=== PATIENT | male | born 1950 | race Caucasian/White ===

== ENCOUNTER 2017-04-08 09:05 | Emergency (ER) | payer MEDICARE ==
[2017-04-08] MEDS ORDERED: NS 0.9% 1000 ML* 1,000 ML IV ONE (09:09)
[2017-04-08 09:26] LABS: Hematocrit 43 % (42-52); Hemoglobin 14.4 g/dl (14.0-18.0); Mean Corpuscular HGB Conc 34 g/dl (31-36); Mean Corpuscular Hemoglobin 32 pg (27-31); Mean Corpuscular Volume 94 fL (80-94); Mean Platelet Volume 8 um3 (7.4-10.4); Red Blood Count 4.51 10^6/ul (4.0-5.4); Red Cell Distribution Width 14 % (10.5-15); White Blood Count 5.4 10^3/ul (3.5-10.8)
--- NOTE | 2017-04-08 09:37 | RAD ---
Indication: Dizziness. Single frontal view of the chest performed at 0918 hours was reviewed. No prior is available. No mediastinal shift is noted. Heart is of normal size and configuration. Lung larios appear clear. IMPRESSION: NO ACTIVE CARDIOPULMONARY DISEASE IS NOTED.
[2017-04-08 09:42] LABS: Albumin 4.2 g/dL (3.2-5.2); BUN/Creatinine Ratio 15.7 (8-20); C Reactive Protein 4.7 mg/L (< 5.00); Calcium 9.4 mg/dL (8.6-10.3); EGFR African American 93.4 (>60); EGFR Non-African American 72.6 (>60); Globulin 2.7 g/dL (2-4); Magnesium 1.9 mg/dL (1.9-2.7); Potassium 4.5 mmol/L (3.5-5.0); Total Bilirubin 0.6 mg/dL (0.2-1.0); Total Protein 6.9 g/dL (6.4-8.9); Troponin I 0.01 ng/mL (<0.04)
[2017-04-08 10:10] LABS: TSH (Thyroid Stimulating Horm) 3.05 mcIU/mL (0.34-5.60)
[2017-04-08] MEDS ORDERED: Albuterol/Ipratropium NEB.SOL* Albuterol 2.5 MG/Ipratropium 0.5 MG 3 ML INH ONE (10:14)
[2017-04-08 13:08] VITALS: BP 132/72
[2017-04-08 13:21] LABS: Urine Bilirubin Negative (Negative); Urine Glucose Negative (Negative); Urine Nitrite Negative (Negative)
[2017-04-08 13:25] LABS: Urine Bacteria Absent (Absent)
--- NOTE | 2017-04-08 18:30 | ED ---
Richard German Angela, scribed for Hang Jones MD on 04/08/17 at 0913 . Dizziness - HPI Summary HPI Summary: This pt is a 66 y/o male BIBA presenting to [facility] c/o sudden onset of dizziness and weakness today. Pt reports he went outside with a coworker to smoke a cigarette, and as he was climbing the stairs pt began to hold on to the railings. Pt felt dizzy and weak, and had a glazed look to the ceiling (per coworker). Pt denies chest pain, nausea, vomiting. He states he was diaphoretic earlier, but now it has resolved. Pt endorses SOB, which is baseline as PMHx: COPD. Pt is on home O2 only at nights. - History Of Current Complaint Stated Complaint: DIZZY Hx Obtained From: Patient Onset/Duration: Suddenly Timing: Constant Character: Weak, Dizzy Associated Signs And Symptoms: Positive: Diaphoresis - now resolved, SOB - baseline from COPD, Other: - weakness and dizziness. Negative: Nausea, Vomiting , Chest Pain, Visual Changes, Fever, Chills, Slurred Speech - Allergies/Home Medications Allergies/Adverse Reactions: Allergies Allergy/AdvReac Type Severity Reaction Status Date / Time No Known Allergies Allergy Verified 04/08/17 09:13 PMH/Surg Hx/FS Hx/Imm Hx Endocrine/Hematology History: Denies: Hx Diabetes Cardiovascular History: Denies: Hx Hypertension Respiratory History: Reports: Hx Chronic Obstructive Pulmonary Disease (COPD) - Family History Known Family History: Negative: Respiratory Disease - Social History Alcohol Use: Daily - 4-5 drinks daily Hx Substance Use: No Substance Use Type: Reports: None Smoking Status (MU): Heavy Every Day Tobacco Smoker Review of Systems Positive: Skin Diaphoresis - now resolved. Negative: Fever, Chills Eyes: Negative Negative: Chest Pain Positive: Shortness Of Breath - baseline from COPD Negative: Vomiting, Nausea Musculoskeletal: Negative Skin: Negative Positive: Weakness - and dizziness All Other Systems Reviewed And Are Negative: Yes Physical Exam - Summary Physical Exam Summary: VITAL SIGNS: Reviewed. GENERAL: ~Patient is a well-developed and nourished male who is lying comfortable in the stretcher. ~Patient is not in any acute respiratory distress. HEAD AND FACE: No signs of trauma. ~No ecchymosis, hematomas or skull depressions. No sinus tenderness. EYES: PERRLA, EOMI x 2, No injected conjunctiva, no nystagmus. EARS: Hearing grossly intact. Ear canals and tympanic membranes are within normal limits. MOUTH: Oropharynx within normal limits. NECK: Supple, trachea is midline, no adenopathy, no JVD, no carotid bruit, no c- spine tenderness, neck with full ROM. CHEST: Symmetric, no tenderness at palpation LUNGS: Clear to auscultation bilaterally. No wheezing or crackles. CVS: Regular rate and rhythm, S1 and S2 present, no murmurs or gallops appreciated. ABDOMEN: Soft, non-tender. No signs of distention. No rebound no guarding, and no masses palpated. Bowel sounds are normal. EXTREMITIES: FROM in all major joints, no edema, no cyanosis or clubbing. NEURO: Alert and oriented x 3. No acute neurological deficits. Speech is normal and follows commands. SKIN: Dry and warm Triage Information Reviewed: Yes Vital Signs On Initial Exam: Initial Vitals Temp Pulse Resp BP Pulse Ox 99.3 F 96 17 123/80 95 04/08/17 09:13 04/08/17 09:13 04/08/17 09:13 04/08/17 09:13 04/08/17 09:13 Vital Signs Reviewed: Yes Diagnostics - Vital Signs Vital Signs Temp Pulse Resp BP Pulse Ox 04/08/17 13:08 98.9 F 64 20 132/72 04/08/17 11:59 66 19 98 04/08/17 11:30 72 19 135/74 97 04/08/17 11:00 79 20 132/74 97 04/08/17 10:30 68 17 130/69 99 04/08/17 10:25 72 17 98 04/08/17 10:00 72 19 134/69 97 04/08/17 09:30 83 19 118/70 96 04/08/17 09:13 99.3 F 96 17 123/80 95 04/08/17 09:11 22 04/08/17 09:10 123/80 - Laboratory Lab Results: Lab Results 04/08/17 04/08/17 04/08/17 Range/Units 09:00 09:00 09:00 WBC 5.4 (3.5-10.8) 10^3/ul RBC 4.51 (4.0-5.4) 10^6/ul Hgb 14.4 (14.0-18.0) g/dl Hct 43 (42-52) % MCV 94 (80-94) fL MCH 32 H (27-31) pg MCHC 34 (31-36) g/dl RDW 14 (10.5-15) % Plt Count 226 (150-450) 10^3/ul MPV 8 (7.4-10.4) um3 Neut % (Auto) 47.3 (38-83) % Lymph % (Auto) 36.2 (25-47) % [place] % (Auto) 11.1 H (1-9) % Eos % (Auto) 3.8 (0-6) % Baso % (Auto) 1.6 (0-2) % Absolute Neuts (auto) 2.6 (1.5-7.7) 10^3/ul Absolute Lymphs (auto) 2.0 (1.0-4.8) 10^3/ul Absolute Monos (auto) 0.6 (0-0.8) 10^3/ul Absolute Eos (auto) 0.2 (0-0.6) 10^3/ul Absolute Basos (auto) 0.1 (0-0.2) 10^3/ul Absolute Nucleated RBC 0 10^3/ul Nucleated RBC % 0 Sodium 133 (133-145) mmol/L Potassium 4.5 (3.5-5.0) mmol/L Chloride 99 L (101-111) mmol/L Carbon Dioxide 30 (22-32) mmol/L Anion Gap 4 (2-11) mmol/L BUN 16 (6-24) mg/dL Creatinine 1.02 (0.67-1.17) mg/dL Est GFR ( Amer) 93.4 (>60) Est GFR (Non-Af Amer) 72.6 (>60) BUN/Creatinine Ratio 15.7 (8-20) Glucose 112 H (70-100) mg/dL Calcium 9.4 (8.6-10.3) mg/dL Magnesium 1.9 (1.9-2.7) mg/dL Total Bilirubin 0.60 (0.2-1.0) mg/dL AST 23 (13-39) U/L ALT 17 (7-52) U/L Alkaline Phosphatase 57 (34-104) U/L Total Creatine Kinase 370 H (10-223) U/L Troponin I 0.01 (<0.04) ng/mL C-Reactive Protein 4.70 (< 5.00) mg/L B-Natriuretic Peptide 53 ( - 100) pg/mL Total Protein 6.9 (6.4-8.9) g/dL Albumin 4.2 (3.2-5.2) g/dL Globulin 2.7 (2-4) g/dL Albumin/Globulin Ratio 1.6 (1-3) TSH 3.05 (0.34-5.60) mcIU/mL Urine Color Urine Appearance Urine pH (5-9) Ur Specific [place] (1.010-1.030) Urine Protein (Negative) Urine Ketones (Negative) Urine Blood (Negative) Urine Nitrate (Negative) Urine Bilirubin (Negative) Urine Urobilinogen (Negative) Ur Leukocyte Esterase (Negative) Urine WBC (Auto) (Absent) Urine RBC (Auto) (Absent) Urine Bacteria (Absent) Urine Glucose (Negative) 04/08/17 Range/Units 12:30 WBC (3.5-10.8) 10^3/ul RBC (4.0-5.4) 10^6/ul Hgb (14.0-18.0) g/dl Hct (42-52) % MCV (80-94) fL MCH (27-31) pg MCHC (31-36) g/dl RDW (10.5-15) % Plt Count (150-450) 10^3/ul MPV (7.4-10.4) um3 Neut % (Auto) (38-83) % Lymph % (Auto) (25-47) % [place] % (Auto) (1-9) % Eos % (Auto) (0-6) % Baso % (Auto) (0-2) % Absolute Neuts (auto) (1.5-7.7) 10^3/ul Absolute Lymphs (auto) (1.0-4.8) 10^3/ul Absolute Monos (auto) (0-0.8) 10^3/ul Absolute Eos (auto) (0-0.6) 10^3/ul Absolute Basos (auto) (0-0.2) 10^3/ul Absolute Nucleated RBC 10^3/ul Nucleated RBC % Sodium (133-145) mmol/L Potassium (3.5-5.0) mmol/L Chloride (101-111) mmol/L Carbon Dioxide (22-32) mmol/L Anion Gap (2-11) mmol/L BUN (6-24) mg/dL Creatinine (0.67-1.17) mg/dL Est GFR ( Amer) (>60) Est GFR (Non-Af Amer) (>60) BUN/Creatinine Ratio (8-20) Glucose (70-100) mg/dL Calcium (8.6-10.3) mg/dL Magnesium (1.9-2.7) mg/dL Total Bilirubin (0.2-1.0) mg/dL AST (13-39) U/L ALT (7-52) U/L Alkaline Phosphatase (34-104) U/L Total Creatine Kinase (10-223) U/L Troponin I (<0.04) ng/mL C-Reactive Protein (< 5.00) mg/L B-Natriuretic Peptide ( - 100) pg/mL Total Protein (6.4-8.9) g/dL Albumin (3.2-5.2) g/dL Globulin (2-4) g/dL Albumin/Globulin Ratio (1-3) TSH (0.34-5.60) mcIU/mL Urine Color Straw Urine Appearance Clear Urine pH 6 (5-9) Ur Specific [place] 1.010 (1.010-1.030) Urine Protein Negative (Negative) Urine Ketones Negative (Negative) Urine Blood Negative (Negative) Urine Nitrate Negative (Negative) Urine Bilirubin Negative (Negative) Urine Urobilinogen Negative (Negative) Ur Leukocyte Esterase 2+ H (Negative) Urine WBC (Auto) 2+(11-20/hpf) H (Absent) Urine RBC (Auto) Absent (Absent) Urine Bacteria Absent (Absent) Urine Glucose Negative (Negative) Result Diagrams: 04/08/17 09:00 04/08/17 09:00 Lab Statement: Any lab studies that have been ordered have been reviewed, and results considered in the medical decision making process. - Radiology chest XR Xray Interpretation: No Acute Changes - IMPRESSION: No active cardiopulmonary disease is noted. ED physician has reviewed this radiology report and agrees. Radiology Interpretation Completed By: Radiologist - EKG 0906 Cardiac Rate: NL - 90 bpm EKG Rhythm: Sinus Rhythm ST Segment: Normal EKG Interpretation: Normal axis. No ST elevation. Dizzy Course/Dx - Course Assessment/Plan: This pt is a 66 y/o male BIBA presenting to [facility] c/o sudden onset of dizziness and weakness today. Pt reports he went outside with a coworker to smoke a cigarette, and as he was climbing the stairs pt began to hold on to the railings. Pt felt dizzy and weak, and had a glazed look to the ceiling (per coworker). Pt denies chest pain, nausea, vomiting. He states he was diaphoretic earlier, but now it has resolved. Pt endorses SOB, which is baseline as PMHx: COPD. Pt is on home O2 only at nights. Test results are without any abnormalities except of CPK of 370. UA shows 2 +leukocytes and 2+ white blood cells. Pt does not have any UTI symptoms. Therefore we wont treat with antibiotics at this time. The pt was hydrated and his symptoms resolved. On re-examination pt had lungs clear to auscultation bilaterally, and he didn not have any chest pain or other complaints. The pt was in the ED for a couple of hours and the symptoms did not return. Therefore, he will be discharged home with follow up from his PCP. He was recommended that if he develops dysuria, hematuria, urinary frequency, fever, or chills he will return to the ED. Pt is hemodynamically stable, alert and oriented x3. - Diagnoses Differential Diagnosis/HQI/PQRI: Anxiety, Dysrhythmia, Hyperventilation, Medication Reaction, Vasovagal Reaction, Other - Dehydration Provider Diagnoses: Dizziness Discharge - Discharge Plan Condition: Stable Disposition: HOME Patient Education Materials: Dizziness (ED) Referrals: [facility] PHYSICIAN REFERRAL [Outside] Additional Instructions: Please establish a primary care provider and follow up. The documentation as recorded by the Richard duarte Angela accurately reflects the service I personally performed and the decisions made by me, Hang Jones MD.
== END 2017-04-08 13:08 | disposition home or self-care (01) ==
LOC: ED 09:05
DX: R42 Dizziness and giddiness (principal); R53.1 Weakness; R06.02 Shortness of breath; F17.210 Nicotine dependence, cigarettes, uncomplicated
CPT/HCPCS: 36415; 71010; 80053; 81003; 81015; 82550; 83735; 83880; 84443; 84484; 85025; 86140; 86803; 87086; 93005; 94640; 99283; A9270-GY

== ENCOUNTER 2022-06-01 15:52 | Inpatient (IN) ==
[2022-06-01 17:01] LABS: High Sens Troponin Baseline 61 pg/mL (<20)
[2022-06-01 17:02] LABS: Hematocrit 27 % (42-52); Mean Corpuscular HGB Conc 33 g/dL (31-36); Mean Corpuscular Hemoglobin 29 pg (27-31); Mean Corpuscular Volume 90 fL (80-94); Platelet Count 340 10^3/uL (150-450); Red Blood Count 3.06 10^6 /uL (4.18-5.48); Red Cell Distribution Width 16 % (10-15); White Blood Count 20.8 10^3/uL (3.5-10.8)
[2022-06-01 17:47] LABS: ALT 48 U/L (7-52); Albumin 3.4 g/dL (3.2-5.2); Albumin/Globulin Ratio 1.5 (1-3); Alkaline Phosphatase 99 U/L (35-149); Blood Urea Nitrogen 19 mg/dL (6-24); CO2 Carbon Dioxide 28 mmol/L (22-32); Chloride 103 mmol/L (101-111); Globulin 2.3 g/dL (2-4); Glucose 125 mg/dL (70-100); Sodium 137 mmol/L (135-145); Total Protein 5.7 g/dL (6.4-8.9); eGFR CKD-EPI 81.4 (>60)
[2022-06-01 18:05] LABS: Anion Gap 6 mmol/L (2-11)
[2022-06-01 18:24] LABS: Potassium Redraw 3.6 mmol/L (3.5-5.0)
[2022-06-01 18:48] LABS: ABS Lymphocytes 0.6 10^3/ul (1.0-4.8)
[2022-06-01] MEDS ORDERED: metroNIDAZOLE IV 500 MG/100ML 500 MG/100 ML BAG IVPB ONE (19:49)
[2022-06-01] MEDS ORDERED: DOXYcycline 100 MG in NS 0.9% 250 ml 250 ML IVPB ONE (19:49)
[2022-06-01] MEDS ORDERED: Furosemide 20 mg/2 ml IV VIAL IV ONE (19:50)
[2022-06-01] MEDS ORDERED: Albuterol/Ipratropium NEB.SOL (2.5/0.5 MG) 3 ML NEB.SOLN INH ONE (19:50)
[2022-06-01] MEDS ORDERED: Enoxaparin 40 MG/0.4 ML SYR SUBCUT SCH (22:00)
[2022-06-02] MEDS: Albuterol HFA INHALER 8 gm MDI INH SCH ×4 (00:05→20:29)
[2022-06-02] MEDS ORDERED: Albuterol 2.5mg/3 ml (0.083%) NEB.SOLN INH ONE (03:58)
[2022-06-02] MEDS ORDERED: Albuterol 2.5mg/3 ml (0.083%) NEB.SOLN INH PRN (06:06)
[2022-06-02] MEDS: Mometasone/Formoter 200/5 MDI INH SCH ×2 (06:22→20:29)
[2022-06-02 06:26] LABS: ABS Basophils 0.1 10^3/ul (0-0.2); ABS Eosinophils 0.1 10^3/ul (0-0.6); ABS Lymphocytes 1.1 10^3/ul (1.0-4.8); ABS Monocytes 0.3 10^3/ul (0-0.8); ABS Neutrophils 19.4 10^3/ul (1.5-7.7); Eosinophil % 0.3 %; Hematocrit 28 % (42-52); Hemoglobin 8.9 g/dL (14.0-18.0); Lymphocyte % 5.2 %; Mean Corpuscular HGB Conc 32 g/dL (31-36); Mean Corpuscular Hemoglobin 29 pg (27-31); Mean Corpuscular Volume 90 fL (80-94); Mean Platelet Volume 7.5 fL (7.4-10.4); Platelet Count 285 10^3/uL (150-450); Red Blood Count 3.11 10^6 /uL (4.18-5.48); Red Cell Distribution Width 16 % (10-15)
[2022-06-02] MEDS: metroNIDAZOLE IV 500 MG/100ML 500 MG/100 ML BAG IVPB SCH ×2 (06:26→18:21)
[2022-06-02 06:29] LABS: INR 1.6 (0.89-1.11)
[2022-06-02 06:45] LABS: High Sensitivity Troponin 1 Hr 63 pg/mL (<20)
[2022-06-02 06:48] LABS: Calcium 9.2 mg/dL (8.6-10.3); Potassium 3.8 mmol/L (3.5-5.0); eGFR CKD-EPI 82.4 (>60)
[2022-06-02] MEDS: SPIRIVA Respimat (tiotropium) 2.5 mcg/inh Inhaler INH SCH (08:18)
[2022-06-02] MEDS ORDERED: Metoprolol Tartrate 5 mg VIAL 5 ml VIAL (1 mg/ml) IV ONE ×2 (09:58→10:39)
[2022-06-02] MEDS ORDERED: DOXYcycline 100 MG in NS 0.9% 250 ml 250 ML IVPB SCH (12:00)
[2022-06-02] MEDS ORDERED: Furosemide 40 mg/4 ml IV VIAL IV ONE (13:41)
[2022-06-03 05:31] LABS: ABS Lymphocytes 1.5 10^3/ul (1.0-4.8); ABS Monocytes 0.5 10^3/ul (0-0.8); Eosinophil % 0.2 %; Hematocrit 23 % (42-52); Hemoglobin 7.5 g/dL (14.0-18.0); Lymphocyte % 9.8 %; Mean Corpuscular HGB Conc 32 g/dL (31-36); Mean Corpuscular Hemoglobin 29 pg (27-31); Mean Corpuscular Volume 89 fL (80-94); Mean Platelet Volume 7.7 fL (7.4-10.4); Platelet Count 233 10^3/uL (150-450); Red Cell Distribution Width 16 % (10-15); White Blood Count 15.1 10^3/uL (3.5-10.8)
[2022-06-03] MEDS: Albuterol HFA INHALER 8 gm MDI INH SCH ×3 (05:54→20:06)
[2022-06-03 06:01] LABS: Calcium 8.6 mg/dL (8.6-10.3); Magnesium 1.7 mg/dL (1.9-2.7); Potassium 3.4 mmol/L (3.5-5.0); eGFR CKD-EPI 85.6 (>60)
[2022-06-03] MEDS ORDERED: Potassium Chlor 20 meq TAB.ER PO ONE (07:38)
[2022-06-03] MEDS: SPIRIVA Respimat (tiotropium) 2.5 mcg/inh Inhaler INH SCH (09:32)
[2022-06-03] MEDS ORDERED: Magnesium Sulfate 2 gm BAG 2 GM/50 ML BAG IVPB ONE (10:15)
[2022-06-03] MEDS: Mometasone/Formoter 200/5 MDI INH SCH ×2 (10:34→20:05)
[2022-06-04 07:12] LABS: ABS Eosinophils 0.1 10^3/ul (0-0.6); ABS Lymphocytes 1.2 10^3/ul (1.0-4.8); ABS Monocytes 0.4 10^3/ul (0-0.8); ABS Neutrophils 10.4 10^3/ul (1.5-7.7); Eosinophil % 0.6 %; Hematocrit 25 % (42-52); Hemoglobin 8.1 g/dL (14.0-18.0); Lymphocyte % 10.2 %; Mean Corpuscular HGB Conc 33 g/dL (31-36); Mean Corpuscular Hemoglobin 29 pg (27-31); Mean Corpuscular Volume 90 fL (80-94); Mean Platelet Volume 7.9 fL (7.4-10.4); Platelet Count 259 10^3/uL (150-450); Red Blood Count 2.78 10^6 /uL (4.18-5.48); Red Cell Distribution Width 16 % (10-15); White Blood Count 12.2 10^3/uL (3.5-10.8)
[2022-06-04 07:30] LABS: Calcium 8.7 mg/dL (8.6-10.3); Magnesium 1.9 mg/dL (1.9-2.7); Potassium 4.1 mmol/L (3.5-5.0); eGFR CKD-EPI 90.8 (>60)
[2022-06-04] MEDS: SPIRIVA Respimat (tiotropium) 2.5 mcg/inh Inhaler INH SCH (09:02)
[2022-06-04] MEDS: Mometasone/Formoter 200/5 MDI INH SCH ×2 (09:02→19:17)
[2022-06-04] MEDS: Albuterol HFA INHALER 8 gm MDI INH SCH ×2 (09:07→19:17)
[2022-06-05 07:01] LABS: ABS Eosinophils 0.1 10^3/ul (0-0.6); ABS Lymphocytes 1.2 10^3/ul (1.0-4.8); ABS Monocytes 0.4 10^3/ul (0-0.8); ABS Neutrophils 8.8 10^3/ul (1.5-7.7); Eosinophil % 0.6 %; Hematocrit 25 % (42-52); Hemoglobin 8.3 g/dL (14.0-18.0); Lymphocyte % 11.1 %; Mean Corpuscular HGB Conc 33 g/dL (31-36); Mean Corpuscular Hemoglobin 30 pg (27-31); Mean Corpuscular Volume 90 fL (80-94); Mean Platelet Volume 7.4 fL (7.4-10.4); Platelet Count 263 10^3/uL (150-450); Red Blood Count 2.77 10^6 /uL (4.18-5.48); Red Cell Distribution Width 16 % (10-15); White Blood Count 10.5 10^3/uL (3.5-10.8)
[2022-06-05] MEDS: SPIRIVA Respimat (tiotropium) 2.5 mcg/inh Inhaler INH SCH (07:02)
[2022-06-05] MEDS: Mometasone/Formoter 200/5 MDI INH SCH ×2 (07:02→19:04)
[2022-06-05] MEDS: Albuterol HFA INHALER 8 gm MDI INH SCH ×2 (07:06→19:04)
[2022-06-05 07:13] LABS: Calcium 8.7 mg/dL (8.6-10.3); Potassium 3.9 mmol/L (3.5-5.0); eGFR CKD-EPI 94.2 (>60)
[2022-06-06 07:19] LABS: ABS Eosinophils 0.1 10^3/ul (0-0.6); ABS Lymphocytes 1.3 10^3/ul (1.0-4.8); ABS Monocytes 0.6 10^3/ul (0-0.8); ABS Neutrophils 10.9 10^3/ul (1.5-7.7); Eosinophil % 0.5 %; Hematocrit 28 % (42-52); Hemoglobin 9.2 g/dL (14.0-18.0); Lymphocyte % 10.3 %; Mean Corpuscular HGB Conc 33 g/dL (31-36); Mean Corpuscular Hemoglobin 29 pg (27-31); Mean Corpuscular Volume 90 fL (80-94); Mean Platelet Volume 7.6 fL (7.4-10.4); Platelet Count 285 10^3/uL (150-450); Red Blood Count 3.14 10^6 /uL (4.18-5.48); Red Cell Distribution Width 17 % (10-15); White Blood Count 12.9 10^3/uL (3.5-10.8)
[2022-06-06 08:16] LABS: Calcium 9.2 mg/dL (8.6-10.3); Magnesium 1.6 mg/dL (1.9-2.7); Potassium 3.6 mmol/L (3.5-5.0); eGFR CKD-EPI 92.4 (>60)
[2022-06-06] MEDS: Mometasone/Formoter 200/5 MDI INH SCH ×2 (08:17→19:23)
[2022-06-06] MEDS: SPIRIVA Respimat (tiotropium) 2.5 mcg/inh Inhaler INH SCH (08:18)
[2022-06-06] MEDS: Albuterol HFA INHALER 8 gm MDI INH SCH ×2 (08:19→19:23)
[2022-06-06] MEDS ORDERED: Labetalol IV 5 MG/ML 20 ml VIAL IV PUSH ONE ×3 (08:31→23:07)
[2022-06-06] MEDS ORDERED: Lactated Ringers 1000 ml BAG 1,000 ML IV ONE ×2 (09:20→15:22)
[2022-06-06] MEDS ORDERED: Piperacillin/Tazobac ADVAN 3.375 GM in NS 0.9% 100 ml BAG 100 ML IV ONE (09:21)
[2022-06-06] MEDS ORDERED: Zosyn per Pharmacy NOTE FOLLOW UP SCH (10:00)
[2022-06-06 10:04] LABS: C Reactive Protein 40.34 mg/L (<8.01)
[2022-06-06] MEDS ORDERED: Magnesium Sulf 4 GM/100 ML IV 4,000 MG/100 ML BAG IVPB ONE (12:26)
[2022-06-06] MEDS: ZOSYN 3.375 GM Q8H per EXTENDED INFUSION IV SCH (17:14)
[2022-06-06 18:06] LABS: Urine Appearance Clear; Urine Bilirubin Negative (Negative); Urine Blood Negative (Negative); Urine Color Straw; Urine Glucose Negative (Negative); Urine Ketones Negative (Negative); Urine Nitrite Negative (Negative); Urine Protein Negative (Negative); Urine Specific Gravity 1.008 (1.002-1.030); Urine Urobilinogen Negative (Negative)
[2022-06-06 18:10] LABS: Urine Bacteria 1+ (Absent); Urine Red Blood Cell Trace(0-2/hpf) (Absent); Urine Squamous Epithelial Cell Present (Absent); Urine White Blood Cell Trace(0-5/hpf) (Absent)
[2022-06-06] MEDS ORDERED: Furosemide 40 mg/4 ml IV VIAL IV ONE (23:07)
[2022-06-06] MEDS ORDERED: nitroGLYCERIN DRIP 25,000 MCG/250 ML BTL IV SCH (23:45)
[2022-06-06 23:53] LABS: PCO2 Arterial 69 mmHg (35-45); PO2 Arterial 61 mmHg (80-100)
[2022-06-07] MEDS: ZOSYN 3.375 GM Q8H per EXTENDED INFUSION IV SCH ×3 (02:15→16:24)
[2022-06-07 06:18] LABS: ABS Basophils 0.1 10^3/ul (0-0.2); ABS Lymphocytes 1.4 10^3/ul (1.0-4.8); ABS Neutrophils 16.8 10^3/ul (1.5-7.7); Eosinophil % 0.1 %; Hematocrit 24 % (42-52); Hemoglobin 7.8 g/dL (14.0-18.0); Lymphocyte % 7.1 %; Mean Corpuscular HGB Conc 32 g/dL (31-36); Mean Corpuscular Hemoglobin 29 pg (27-31); Mean Corpuscular Volume 90 fL (80-94); Mean Platelet Volume 7.1 fL (7.4-10.4); Platelet Count 253 10^3/uL (150-450); Red Cell Distribution Width 17 % (10-15); White Blood Count 19.3 10^3/uL (3.5-10.8)
[2022-06-07 07:02] LABS: Albumin 2.7 g/dL (3.2-5.2); Albumin/Globulin Ratio 1.9 (1-3); Calcium 8.3 mg/dL (8.6-10.3); Globulin 1.4 g/dL (2-4); Magnesium 1.8 mg/dL (1.9-2.7); Potassium 3.6 mmol/L (3.5-5.0); Total Bilirubin 0.6 mg/dL (0.2-1.0); Total Protein 4.1 g/dL (6.4-8.9); eGFR CKD-EPI 76.7 (>60)
[2022-06-07] MEDS: SPIRIVA Respimat (tiotropium) 2.5 mcg/inh Inhaler INH SCH (08:29)
[2022-06-07] MEDS: Albuterol HFA INHALER 8 gm MDI INH SCH ×2 (08:29→19:16)
[2022-06-07] MEDS: Mometasone/Formoter 200/5 MDI INH SCH (08:30)
[2022-06-07] MEDS ORDERED: Magnesium Sulfate IV 1GM/100ML 1 GM/100 ML BAG IV ONE (10:41)
[2022-06-07] MEDS ORDERED: Potassium Chlor 20 meq TAB.ER PO ONE (10:43)
[2022-06-07 10:50] LABS: PCO2 Arterial 45 mmHg (35-45); PO2 Arterial 110 mmHg (80-100)
[2022-06-07] MEDS: Albuterol/Ipratropium NEB.SOL (2.5/0.5 MG) 3 ML NEB.SOLN INH PRN (13:20)
[2022-06-08] MEDS: ZOSYN 3.375 GM Q8H per EXTENDED INFUSION IV SCH ×3 (00:35→17:04)
[2022-06-08 05:15] LABS: ABS Lymphocytes 1.1 10^3/ul (1.0-4.8); ABS Monocytes 0.4 10^3/ul (0-0.8); ABS Neutrophils 12.5 10^3/ul (1.5-7.7); Hematocrit 23 % (42-52); Hemoglobin 7.5 g/dL (14.0-18.0); Lymphocyte % 7.8 %; Mean Corpuscular HGB Conc 32 g/dL (31-36); Mean Corpuscular Hemoglobin 29 pg (27-31); Mean Corpuscular Volume 89 fL (80-94); Mean Platelet Volume 7.7 fL (7.4-10.4); Platelet Count 261 10^3/uL (150-450); Red Cell Distribution Width 17 % (10-15)
[2022-06-08 06:07] LABS: Calcium 8.3 mg/dL (8.6-10.3); Potassium 4.4 mmol/L (3.5-5.0); eGFR CKD-EPI 95.7 (>60)
[2022-06-08] MEDS: Albuterol HFA INHALER 8 gm MDI INH SCH ×2 (07:02→19:07)
[2022-06-08] MEDS ORDERED: Furosemide 40 mg/4 ml IV VIAL IV ONE (10:27)
[2022-06-08] MEDS: Albuterol/Ipratropium NEB.SOL (2.5/0.5 MG) 3 ML NEB.SOLN INH PRN ×2 (12:33→19:44)
[2022-06-09] MEDS: ZOSYN 3.375 GM Q8H per EXTENDED INFUSION IV SCH ×2 (00:48→08:21)
[2022-06-09] MEDS ORDERED: Albuterol HFA INHALER 8 gm MDI INH SCH (07:00)
[2022-06-09 08:59] LABS: ABS Eosinophils 0.1 10^3/ul (0-0.6); ABS Lymphocytes 1.7 10^3/ul (1.0-4.8); ABS Monocytes 0.5 10^3/ul (0-0.8); ABS Neutrophils 8.7 10^3/ul (1.5-7.7); Eosinophil % 0.6 %; Hematocrit 25 % (42-52); Hemoglobin 8.1 g/dL (14.0-18.0); Lymphocyte % 15.2 %; Mean Corpuscular HGB Conc 33 g/dL (31-36); Mean Corpuscular Hemoglobin 29 pg (27-31); Mean Corpuscular Volume 90 fL (80-94); Mean Platelet Volume 7.8 fL (7.4-10.4); Platelet Count 309 10^3/uL (150-450); Red Blood Count 2.75 10^6 /uL (4.18-5.48); Red Cell Distribution Width 17 % (10-15)
[2022-06-09 09:52] LABS: Calcium 8.9 mg/dL (8.6-10.3); Magnesium 1.9 mg/dL (1.9-2.7); eGFR CKD-EPI 85.6 (>60)
[2022-06-09 12:57] VITALS: BP 137/82
== END 2022-06-09 17:00 | disposition home health service (06) | DRG 947 ==
LOC: EDHOLD 15:52 → ED 15:52 → SUATTDRO 21:10 → ICU 06-02 16:48 → SSU 06-03 16:28 → SUATTDRO 06-04 07:04 → MED 06-05 22:31 → ICU 06-06 23:59
PROVIDERS: ADMIT Internal Medicine; ATTEND Internal Medicine

== ENCOUNTER 2022-06-13 10:07 | Inpatient (IN) ==
[2022-06-13 11:14] LABS: ABS Eosinophils 0.1 10^3/ul (0-0.6); ABS Lymphocytes 1.2 10^3/ul (1.0-4.8); ABS Neutrophils 19.1 10^3/ul (1.5-7.7); Eosinophil % 0.3 %; Hematocrit 27 % (42-52); Hemoglobin 8.5 g/dL (14.0-18.0); Lymphocyte % 5.5 %; Mean Corpuscular HGB Conc 31 g/dL (31-36); Mean Corpuscular Hemoglobin 29 pg (27-31); Mean Corpuscular Volume 93 fL (80-94); Mean Platelet Volume 7.5 fL (7.4-10.4); Platelet Count 340 10^3/uL (150-450); Red Blood Count 2.95 10^6 /uL (4.18-5.48); Red Cell Distribution Width 17 % (10-15); White Blood Count 21.4 10^3/uL (3.5-10.8)
[2022-06-13] MEDS ORDERED: Vancomycin 1,000 MG in NS 0.9% 250 ml 250 ML IVPB ONE ×2 (11:18→14:42)
[2022-06-13] MEDS ORDERED: Piperacillin/Tazobac ADVAN 3.375 GM in NS 0.9% 100 ml BAG 100 ML IV ONE ×2 (11:18→14:42)
[2022-06-13 11:48] LABS: Albumin/Globulin Ratio 1.4 (1-3); C Reactive Protein 251.24 mg/L (<8.01); Calcium 9.2 mg/dL (8.6-10.3); Globulin 2.1 g/dL (2-4); Potassium 4.1 mmol/L (3.5-5.0); Total Bilirubin 0.8 mg/dL (0.2-1.0); Total Protein 5.1 g/dL (6.4-8.9); eGFR CKD-EPI 84.5 (>60)
[2022-06-13 12:34] LABS: INR 1.7 (0.89-1.11)
[2022-06-13 12:35] LABS: Activated Partial Thrombo Time 23.7 seconds (26.0-38.0)
[2022-06-13 13:15] LABS: High Sensitivity Troponin 1 Hr 83 pg/mL (<20)
[2022-06-13 13:26] LABS: Urine Appearance Cloudy; Urine Bilirubin Negative (Negative); Urine Blood 1+ (Negative); Urine Color Yellow; Urine Glucose Negative (Negative); Urine Ketones Negative (Negative); Urine Nitrite Negative (Negative); Urine Protein 2+(100 mg/dL) (Negative); Urine Specific Gravity 1.017 (1.002-1.030); Urine Urobilinogen Negative (Negative)
[2022-06-13 14:11] LABS: Urine Bacteria Absent (Absent); Urine Red Blood Cell 1+(3-5/hpf) (Absent); Urine Squamous Epithelial Cell Present (Absent); Urine White Blood Cell 1+(6-10/hpf) (Absent)
[2022-06-13] MEDS ORDERED: Albuterol 2.5mg/3 ml (0.083%) NEB.SOLN INH PRN (14:42)
[2022-06-13] MEDS ORDERED: Furosemide 40 mg/4 ml IV VIAL IV SLOW PU ONE (14:42)
[2022-06-13] MEDS ORDERED: Albuterol/Ipratropium NEB.SOL (2.5/0.5 MG) 3 ML NEB.SOLN ONE (14:56)
[2022-06-13] MEDS ORDERED: Vancomycin per Pharmacy 1 EA NOTE FOLLOW UP SCH (15:00)
[2022-06-13] MEDS ORDERED: Zosyn per Pharmacy NOTE FOLLOW UP SCH (15:00)
[2022-06-13] MEDS: Albuterol/Ipratropium NEB.SOL (2.5/0.5 MG) 3 ML NEB.SOLN INH SCH ×3 (15:02→22:55)
[2022-06-13] MEDS ORDERED: Azithromycin 500 mg/250 mL NS IVPB ONE (16:00)
[2022-06-13] MEDS: methylPREDNISolone SOD SUCC 40 mg/ml 1 ml VIAL IV SCH (16:24)
[2022-06-13] MEDS: Azithromycin 500 mg/250 ml NS 500 MG/250 ML BAG IVPB SCH (17:57)
[2022-06-13] MEDS: ZOSYN 3.375 GM Q8H per EXTENDED INFUSION IV SCH (17:57)
[2022-06-13] MEDS: Mometasone/Formoter 200/5 MDI INH SCH (18:55)
[2022-06-14] MEDS: Vancomycin 1000 MG in NS 0.9% 250 ML IVPB SCH ×2 (00:31→12:44)
[2022-06-14] MEDS: ZOSYN 3.375 GM Q8H per EXTENDED INFUSION IV SCH ×3 (00:32→16:03)
[2022-06-14] MEDS: methylPREDNISolone SOD SUCC 40 mg/ml 1 ml VIAL IV SCH ×3 (00:32→16:01)
[2022-06-14] MEDS: Albuterol/Ipratropium NEB.SOL (2.5/0.5 MG) 3 ML NEB.SOLN INH SCH ×2 (03:05→06:36)
[2022-06-14 05:09] LABS: ABS Basophils 0.1 10^3/ul (0-0.2); ABS Lymphocytes 0.5 10^3/ul (1.0-4.8); ABS Monocytes 0.2 10^3/ul (0-0.8); Hematocrit 23 % (42-52); Hemoglobin 7.5 g/dL (14.0-18.0); Lymphocyte % 3.1 %; Mean Corpuscular HGB Conc 33 g/dL (31-36); Mean Corpuscular Hemoglobin 30 pg (27-31); Mean Corpuscular Volume 91 fL (80-94); Mean Platelet Volume 7.7 fL (7.4-10.4); Platelet Count 293 10^3/uL (150-450); Red Blood Count 2.51 10^6 /uL (4.18-5.48); Red Cell Distribution Width 17 % (10-15); White Blood Count 16.7 10^3/uL (3.5-10.8)
[2022-06-14 05:15] LABS: INR 2.47 (0.89-1.11)
[2022-06-14 05:48] LABS: Calcium 8.5 mg/dL (8.6-10.3); Magnesium 1.8 mg/dL (1.9-2.7); Phosphorus 4.1 mg/dL (2.5-5.0); eGFR CKD-EPI 76.7 (>60)
[2022-06-14] MEDS ORDERED: Albuterol/Ipratropium NEB.SOL (2.5/0.5 MG) 3 ML NEB.SOLN INH PRN (06:44)
[2022-06-14] MEDS: Mometasone/Formoter 200/5 MDI INH SCH ×2 (06:50→19:35)
[2022-06-14] MEDS ORDERED: Albuterol HFA INHALER 8 gm MDI INH SCH (07:00)
[2022-06-14] MEDS ORDERED: Magnesium Sulfate 2 gm BAG 2 GM/50 ML BAG IVPB ONE (07:14)
[2022-06-14] MEDS: SPIRIVA Respimat (tiotropium) 2.5 mcg/inh Inhaler INH SCH (10:08)
[2022-06-14] MEDS: Azithromycin 500 mg/250 ml NS 500 MG/250 ML BAG IVPB SCH (17:10)
[2022-06-15] MEDS: ZOSYN 3.375 GM Q8H per EXTENDED INFUSION IV SCH ×3 (00:37→17:43)
[2022-06-15] MEDS: methylPREDNISolone SOD SUCC 40 mg/ml 1 ml VIAL IV SCH ×3 (00:41→17:47)
[2022-06-15] MEDS: Vancomycin 1000 MG in NS 0.9% 250 ML IVPB SCH ×2 (00:42→13:30)
[2022-06-15 06:47] LABS: Calcium 9.1 mg/dL (8.6-10.3); Magnesium 2.1 mg/dL (1.9-2.7); Potassium 4.2 mmol/L (3.5-5.0); eGFR CKD-EPI 72.8 (>60)
[2022-06-15 07:08] LABS: ABS Lymphocytes 0.4 10^3/ul (1.0-4.8); ABS Monocytes 0.3 10^3/ul (0-0.8); ABS Neutrophils 14.4 10^3/ul (1.5-7.7); Hematocrit 23 % (42-52); Hemoglobin 7.6 g/dL (14.0-18.0); Lymphocyte % 2.8 %; Mean Corpuscular HGB Conc 33 g/dL (31-36); Mean Corpuscular Hemoglobin 29 pg (27-31); Mean Corpuscular Volume 90 fL (80-94); Mean Platelet Volume 8.3 fL (7.4-10.4); Nucleated Red Blood Cells % 0.1; Platelet Count 295 10^3/uL (150-450); Red Blood Count 2.57 10^6 /uL (4.18-5.48); Red Cell Distribution Width 16 % (10-15); White Blood Count 15.2 10^3/uL (3.5-10.8)
[2022-06-15] MEDS: Mometasone/Formoter 200/5 MDI INH SCH ×2 (07:21→20:57)
[2022-06-15] MEDS: SPIRIVA Respimat (tiotropium) 2.5 mcg/inh Inhaler INH SCH (07:24)
[2022-06-15] MEDS ORDERED: SPIRIVA Respimat (tiotropium) 2.5 mcg/inh Inhaler INH SCH (09:00)
[2022-06-15] MEDS ORDERED: Vancomycin Trough Check NOTE FOLLOW UP ONE (11:30)
[2022-06-15] MEDS ORDERED: Dextrose 50% Syringe 50 ml 25 GM/50 ML SYRINGE IV PUSH PRN (15:51)
[2022-06-15] MEDS ORDERED: Furosemide 20 mg/2 ml IV VIAL IV ONE (17:40)
[2022-06-15] MEDS: Azithromycin 500 mg/250 ml NS 500 MG/250 ML BAG IVPB SCH (17:47)
[2022-06-16] MEDS: Vancomycin 1000 MG in NS 0.9% 250 ML IVPB SCH (00:44)
[2022-06-16] MEDS: ZOSYN 3.375 GM Q8H per EXTENDED INFUSION IV SCH ×3 (00:54→16:30)
[2022-06-16 06:14] LABS: ABS Lymphocytes 0.5 10^3/ul (1.0-4.8); ABS Monocytes 0.2 10^3/ul (0-0.8); ABS Neutrophils 11.3 10^3/ul (1.5-7.7); Hematocrit 23 % (42-52); Hemoglobin 7.5 g/dL (14.0-18.0); Lymphocyte % 3.9 %; Mean Corpuscular HGB Conc 33 g/dL (31-36); Mean Corpuscular Hemoglobin 29 pg (27-31); Mean Corpuscular Volume 89 fL (80-94); Mean Platelet Volume 8.2 fL (7.4-10.4); Platelet Count 279 10^3/uL (150-450); Red Blood Count 2.58 10^6 /uL (4.18-5.48); Red Cell Distribution Width 16 % (10-15)
[2022-06-16] MEDS: Mometasone/Formoter 200/5 MDI INH SCH ×2 (07:26→19:39)
[2022-06-16] MEDS: SPIRIVA Respimat (tiotropium) 2.5 mcg/inh Inhaler INH SCH (07:28)
[2022-06-16 08:16] LABS: Calcium 9.3 mg/dL (8.6-10.3); Potassium 4.3 mmol/L (3.5-5.0)
[2022-06-16 08:21] LABS: eGFR CKD-EPI 77.1 (>60)
[2022-06-16] MEDS ORDERED: methylPREDNISolone SOD SUCC 40 mg/ml 1 ml VIAL IV SCH (09:00)
[2022-06-16 14:26] LABS: Ferritin 699.4 ng/mL (24-336)
[2022-06-16] MEDS: Azithromycin 500 mg/250 ml NS 500 MG/250 ML BAG IVPB SCH (17:11)
[2022-06-17] MEDS: ZOSYN 3.375 GM Q8H per EXTENDED INFUSION IV SCH ×3 (01:01→16:01)
[2022-06-17 07:03] LABS: ABS Lymphocytes 0.5 10^3/ul (1.0-4.8); ABS Monocytes 0.3 10^3/ul (0-0.8); ABS Neutrophils 12.2 10^3/ul (1.5-7.7); Hematocrit 25 % (42-52); Hemoglobin 8.2 g/dL (14.0-18.0); Lymphocyte % 3.6 %; Mean Corpuscular HGB Conc 32 g/dL (31-36); Mean Corpuscular Hemoglobin 29 pg (27-31); Mean Corpuscular Volume 90 fL (80-94); Mean Platelet Volume 8.6 fL (7.4-10.4); Platelet Count 305 10^3/uL (150-450); Red Blood Count 2.83 10^6 /uL (4.18-5.48); Red Cell Distribution Width 16 % (10-15)
[2022-06-17 07:20] LABS: Phosphorus 3.6 mg/dL (2.5-5.0); Potassium 4.2 mmol/L (3.5-5.0); eGFR CKD-EPI 82.9 (>60)
[2022-06-17] MEDS: Mometasone/Formoter 200/5 MDI INH SCH ×2 (08:13→19:36)
[2022-06-17] MEDS: SPIRIVA Respimat (tiotropium) 2.5 mcg/inh Inhaler INH SCH (08:14)
[2022-06-17] MEDS: Insulin GLARGINE 100 un/ml 10 ml VIAL SUBCUT SCH (12:53)
[2022-06-18] MEDS: ZOSYN 3.375 GM Q8H per EXTENDED INFUSION IV SCH ×5 (00:05→23:23)
[2022-06-18] MEDS: Benzocaine/Menthol LOZ MT PRN (00:08)
[2022-06-18 06:40] LABS: ABS Lymphocytes 0.6 10^3/ul (1.0-4.8); ABS Monocytes 0.8 10^3/ul (0-0.8); ABS Neutrophils 16.4 10^3/ul (1.5-7.7); Hematocrit 27 % (42-52); Hemoglobin 8.7 g/dL (14.0-18.0); Lymphocyte % 3.2 %; Mean Corpuscular HGB Conc 32 g/dL (31-36); Mean Corpuscular Hemoglobin 29 pg (27-31); Mean Corpuscular Volume 90 fL (80-94); Mean Platelet Volume 8.1 fL (7.4-10.4); Nucleated Red Blood Cells % 0.1; Platelet Count 311 10^3/uL (150-450); Red Cell Distribution Width 17 % (10-15); White Blood Count 17.8 10^3/uL (3.5-10.8)
[2022-06-18 07:07] LABS: Albumin/Globulin Ratio 1.7 (1-3); Calcium 10.1 mg/dL (8.6-10.3); Globulin 1.8 g/dL (2-4); Magnesium 1.9 mg/dL (1.9-2.7); Potassium 3.8 mmol/L (3.5-5.0); Total Bilirubin 0.5 mg/dL (0.2-1.0); Total Protein 4.8 g/dL (6.4-8.9); eGFR CKD-EPI 91.8 (>60)
[2022-06-18] MEDS: Mometasone/Formoter 200/5 MDI INH SCH ×2 (07:25→20:24)
[2022-06-18] MEDS: SPIRIVA Respimat (tiotropium) 2.5 mcg/inh Inhaler INH SCH (07:27)
[2022-06-18] MEDS ORDERED: Digoxin IV 0.5 MG/2 ML AMP (0.25 MG/ML) IV SLOW PU ONE (09:12)
[2022-06-18] MEDS ORDERED: Furosemide 40 mg/4 ml IV VIAL IV SLOW PU ONE (09:50)
[2022-06-18] MEDS: Acetaminophen IV 1 GM/100ML 1,000 MG/100 ML BAG IV PRN (09:56)
[2022-06-18] MEDS: Linezolid 600 MG IVPREMIX(*) 600 MG/300 ML BAG IVPB SCH (10:29)
[2022-06-18] MEDS ORDERED: Diltiazem Infusion @ 5 MG/HR - (MEDTELE ONLY, no titration) IV SCH (10:30)
[2022-06-18] MEDS: Insulin GLARGINE 100 un/ml 10 ml VIAL SUBCUT SCH (11:27)
[2022-06-18] MEDS ORDERED: Vancomycin Trough Check NOTE FOLLOW UP ONE (11:30)
[2022-06-18] MEDS: DOXYcycline 100 MG in NS 0.9% 250 ml 250 ML IVPB SCH ×2 (11:52→20:45)
[2022-06-18 16:00] LABS: Urine Appearance Clear; Urine Bilirubin Negative (Negative); Urine Blood Negative (Negative); Urine Color Colorless; Urine Glucose 2+(150 mg/dL) (Negative); Urine Ketones Negative (Negative); Urine Nitrite Negative (Negative); Urine Protein Negative (Negative); Urine Specific Gravity 1.006 (1.002-1.030); Urine Urobilinogen Negative (Negative)
[2022-06-18] MEDS ORDERED: Furosemide 20 mg/2 ml IV VIAL IV SLOW PU ONE (17:41)
[2022-06-19] MEDS: Linezolid 600 MG IVPREMIX(*) 600 MG/300 ML BAG IVPB SCH ×3 (00:38→23:16)
[2022-06-19] MEDS: ZOSYN 3.375 GM Q8H per EXTENDED INFUSION IV SCH ×3 (05:20→20:50)
[2022-06-19 06:11] LABS: ABS Basophils 0.1 10^3/ul (0-0.2); ABS Lymphocytes 0.6 10^3/ul (1.0-4.8); ABS Monocytes 0.9 10^3/ul (0-0.8); ABS Neutrophils 19.3 10^3/ul (1.5-7.7); Hematocrit 27 % (42-52); Hemoglobin 8.7 g/dL (14.0-18.0); Lymphocyte % 3.1 %; Mean Corpuscular HGB Conc 32 g/dL (31-36); Mean Corpuscular Hemoglobin 29 pg (27-31); Mean Corpuscular Volume 90 fL (80-94); Mean Platelet Volume 7.9 fL (7.4-10.4); Platelet Count 271 10^3/uL (150-450); Red Blood Count 2.97 10^6 /uL (4.18-5.48); Red Cell Distribution Width 17 % (10-15); White Blood Count 20.9 10^3/uL (3.5-10.8)
[2022-06-19 06:51] LABS: Albumin 2.7 g/dL (3.2-5.2); Albumin/Globulin Ratio 1.6 (1-3); C Reactive Protein 105.24 mg/L (<8.01); Calcium 9.1 mg/dL (8.6-10.3); Globulin 1.7 g/dL (2-4); Magnesium 1.7 mg/dL (1.9-2.7); Potassium 3.3 mmol/L (3.5-5.0); Total Bilirubin 0.5 mg/dL (0.2-1.0); Total Protein 4.4 g/dL (6.4-8.9); eGFR CKD-EPI 81.9 (>60)
[2022-06-19] MEDS ORDERED: Magnesium Sulfate 2 gm BAG 2 GM/50 ML BAG IVPB ONE (07:36)
[2022-06-19] MEDS ORDERED: Potassium Chloride LIQUID 20 MEQ/15 ML LIQUID PO ONE (07:36)
[2022-06-19] MEDS: SPIRIVA Respimat (tiotropium) 2.5 mcg/inh Inhaler INH SCH (07:48)
[2022-06-19] MEDS: Mometasone/Formoter 200/5 MDI INH SCH ×2 (07:48→19:45)
[2022-06-19] MEDS: Insulin GLARGINE 100 un/ml 10 ml VIAL SUBCUT SCH (08:09)
[2022-06-19] MEDS: DOXYcycline 100 MG in NS 0.9% 250 ml 250 ML IVPB SCH (10:00)
[2022-06-19] MEDS ORDERED: Furosemide 20 mg/2 ml IV VIAL IV SLOW PU ONE (13:23)
[2022-06-20] MEDS: ZOSYN 3.375 GM Q8H per EXTENDED INFUSION IV SCH (05:42)
[2022-06-20 06:19] LABS: ABS Basophils 0.1 10^3/ul (0-0.2); ABS Lymphocytes 0.9 10^3/ul (1.0-4.8); ABS Monocytes 0.6 10^3/ul (0-0.8); ABS Neutrophils 16.8 10^3/ul (1.5-7.7); Eosinophil % 0.2 %; Hematocrit 27 % (42-52); Hemoglobin 8.3 g/dL (14.0-18.0); Lymphocyte % 4.9 %; Mean Corpuscular HGB Conc 31 g/dL (31-36); Mean Corpuscular Hemoglobin 28 pg (27-31); Mean Corpuscular Volume 91 fL (80-94); Mean Platelet Volume 8.1 fL (7.4-10.4); Platelet Count 252 10^3/uL (150-450); Red Blood Count 2.93 10^6 /uL (4.18-5.48); Red Cell Distribution Width 17 % (10-15); White Blood Count 18.3 10^3/uL (3.5-10.8)
[2022-06-20 07:10] LABS: Calcium 8.7 mg/dL (8.6-10.3); Potassium 3.7 mmol/L (3.5-5.0)
[2022-06-20 07:16] LABS: eGFR CKD-EPI 86.2 (>60)
[2022-06-20] MEDS: Mometasone/Formoter 200/5 MDI INH SCH ×2 (07:25→19:52)
[2022-06-20] MEDS: SPIRIVA Respimat (tiotropium) 2.5 mcg/inh Inhaler INH SCH (07:26)
[2022-06-20] MEDS: Insulin GLARGINE 100 un/ml 10 ml VIAL SUBCUT SCH (08:55)
[2022-06-20] MEDS: Nystatin TOP POWDER 15 GM BTL TOPICAL SCH ×2 (12:45→21:19)
[2022-06-20] MEDS: Amoxicillin/Clavul 875/125 TAB (Augmentin 875 tab) PO SCH ×2 (12:46→21:18)
[2022-06-21 07:53] LABS: ABS Lymphocytes 1.1 10^3/ul (1.0-4.8); ABS Monocytes 0.5 10^3/ul (0-0.8); ABS Neutrophils 15.3 10^3/ul (1.5-7.7); Eosinophil % 0.2 %; Hematocrit 27 % (42-52); Hemoglobin 8.6 g/dL (14.0-18.0); Lymphocyte % 6.5 %; Mean Corpuscular HGB Conc 32 g/dL (31-36); Mean Corpuscular Hemoglobin 29 pg (27-31); Mean Corpuscular Volume 91 fL (80-94); Mean Platelet Volume 8.2 fL (7.4-10.4); Platelet Count 261 10^3/uL (150-450); Red Blood Count 2.95 10^6 /uL (4.18-5.48); Red Cell Distribution Width 17 % (10-15)
[2022-06-21] MEDS: Mometasone/Formoter 200/5 MDI INH SCH ×2 (08:00→19:51)
[2022-06-21] MEDS: SPIRIVA Respimat (tiotropium) 2.5 mcg/inh Inhaler INH SCH (08:02)
[2022-06-21 08:21] LABS: Calcium 9.2 mg/dL (8.6-10.3); Magnesium 1.9 mg/dL (1.9-2.7); Potassium 3.7 mmol/L (3.5-5.0); eGFR CKD-EPI 92.2 (>60)
[2022-06-21] MEDS: Insulin GLARGINE 100 un/ml 10 ml VIAL SUBCUT SCH (09:18)
[2022-06-21] MEDS: Amoxicillin/Clavul 875/125 TAB (Augmentin 875 tab) PO SCH ×2 (09:23→21:21)
[2022-06-21] MEDS: Nystatin TOP POWDER 15 GM BTL TOPICAL SCH ×2 (09:23→21:31)
[2022-06-21] MEDS: Benzocaine/Menthol LOZ MT PRN (21:20)
[2022-06-22] MEDS: Mometasone/Formoter 200/5 MDI INH SCH ×2 (07:51→18:35)
[2022-06-22] MEDS: SPIRIVA Respimat (tiotropium) 2.5 mcg/inh Inhaler INH SCH (07:55)
[2022-06-22 09:54] LABS: Hematocrit 34 % (42-52); Hemoglobin 10.5 g/dL (14.0-18.0); Mean Corpuscular HGB Conc 31 g/dL (31-36); Mean Corpuscular Hemoglobin 28 pg (27-31); Mean Corpuscular Volume 91 fL (80-94); Mean Platelet Volume 7.7 fL (7.4-10.4); Platelet Count 328 10^3/uL (150-450); Red Blood Count 3.72 10^6 /uL (4.18-5.48); Red Cell Distribution Width 17 % (10-15); White Blood Count 34.1 10^3/uL (3.5-10.8)
[2022-06-22] MEDS ORDERED: Furosemide 40 mg/4 ml IV VIAL IV ONE (10:00)
[2022-06-22] MEDS ORDERED: KCL 20 MEQ/100 ML IVPREMIX 20 MEQ/100 ML BAG IV ONE (10:03)
[2022-06-22 10:18] LABS: PCO2 Arterial 41 mmHg (35-45); PO2 Arterial 171 mmHg (80-100)
[2022-06-22 10:23] LABS: Calcium 9.6 mg/dL (8.6-10.3); Potassium 4.1 mmol/L (3.5-5.0); eGFR CKD-EPI 85.1 (>60)
[2022-06-22] MEDS: Amoxicillin/Clavul 875/125 TAB (Augmentin 875 tab) PO SCH ×2 (12:01→21:11)
[2022-06-22] MEDS: Nystatin TOP POWDER 15 GM BTL TOPICAL SCH ×2 (12:21→21:36)
[2022-06-22 13:12] LABS: Urine Appearance Clear; Urine Bilirubin Negative (Negative); Urine Blood Negative (Negative); Urine Color Yellow; Urine Glucose Negative (Negative); Urine Ketones Negative (Negative); Urine Nitrite Negative (Negative); Urine Protein Negative (Negative); Urine Specific Gravity 1.013 (1.002-1.030); Urine Urobilinogen Negative (Negative)
[2022-06-22] MEDS: Insulin GLARGINE 100 un/ml 10 ml VIAL SUBCUT SCH (13:51)
[2022-06-22 14:52] LABS: ABS Basophils 0.3 10^3/ul (0-0.2); ABS Eosinophils 0.1 10^3/ul (0-0.6); ABS Lymphocytes 4.3 10^3/ul (1.0-4.8); ABS Monocytes 0.8 10^3/ul (0-0.8); ABS Neutrophils 28.5 10^3/ul (1.5-7.7); Eosinophil % 0.3 %; Lymphocyte % 12.6 %
[2022-06-22] MEDS: Acetaminophen IV 1 GM/100ML 1,000 MG/100 ML BAG IV PRN (21:12)
[2022-06-23] MEDS: Amoxicillin/Clavul 875/125 TAB (Augmentin 875 tab) PO SCH ×2 (07:54→22:01)
[2022-06-23] MEDS: Nystatin TOP POWDER 15 GM BTL TOPICAL SCH ×2 (07:58→22:02)
[2022-06-23] MEDS: Mometasone/Formoter 200/5 MDI INH SCH ×2 (08:28→19:42)
[2022-06-23] MEDS: SPIRIVA Respimat (tiotropium) 2.5 mcg/inh Inhaler INH SCH (08:28)
[2022-06-23] MEDS: Insulin GLARGINE 100 un/ml 10 ml VIAL SUBCUT SCH (09:33)
[2022-06-23 10:17] LABS: ALT 18 U/L (7-52); Albumin 2.6 g/dL (3.2-5.2); Albumin/Globulin Ratio 1.4 (1-3); Alkaline Phosphatase 125 U/L (35-149); Blood Urea Nitrogen 29 mg/dL (6-24); CO2 Carbon Dioxide 30 mmol/L (22-32); Calcium 8.5 mg/dL (8.6-10.3); Chloride 98 mmol/L (101-111); Globulin 1.8 g/dL (2-4); Glucose 121 mg/dL (70-100); Sodium 135 mmol/L (135-145); Total Protein 4.4 g/dL (6.4-8.9); eGFR CKD-EPI 93.2 (>60)
[2022-06-23 10:34] LABS: Anion Gap 7 mmol/L (2-11)
[2022-06-23 11:35] LABS: Hematocrit 26 % (42-52); Hemoglobin 8.2 g/dL (14.0-18.0); Mean Corpuscular HGB Conc 32 g/dL (31-36); Mean Corpuscular Hemoglobin 29 pg (27-31); Mean Corpuscular Volume 90 fL (80-94); Mean Platelet Volume 8.1 fL (7.4-10.4); Platelet Count 212 10^3/uL (150-450); Red Blood Count 2.85 10^6 /uL (4.18-5.48); Red Cell Distribution Width 17 % (10-15); White Blood Count 28.2 10^3/uL (3.5-10.8)
[2022-06-23 13:34] LABS: Potassium, Whole Blood 4.4 mmol/L (3.4-4.5)
[2022-06-23 13:55] LABS: Magnesium 1.6 mg/dL (1.9-2.7)
[2022-06-23 14:05] LABS: Potassium Redraw 4.6 mmol/L (3.5-5.0)
[2022-06-23] MEDS ORDERED: Magnesium Sulfate 2 gm BAG 2 GM/50 ML BAG IVPB ONE (14:56)
[2022-06-24] MEDS: Mometasone/Formoter 200/5 MDI INH SCH ×2 (07:40→19:42)
[2022-06-24] MEDS: SPIRIVA Respimat (tiotropium) 2.5 mcg/inh Inhaler INH SCH (07:40)
[2022-06-24 08:58] LABS: ABS Eosinophils 0.1 10^3/ul (0-0.6); ABS Lymphocytes 1.4 10^3/ul (1.0-4.8); ABS Monocytes 0.7 10^3/ul (0-0.8); ABS Neutrophils 15.1 10^3/ul (1.5-7.7); Eosinophil % 0.6 %; Hematocrit 28 % (42-52); Hemoglobin 8.9 g/dL (14.0-18.0); Lymphocyte % 8.2 %; Mean Corpuscular HGB Conc 31 g/dL (31-36); Mean Corpuscular Hemoglobin 29 pg (27-31); Mean Corpuscular Volume 93 fL (80-94); Mean Platelet Volume 7.5 fL (7.4-10.4); Platelet Count 175 10^3/uL (150-450); Red Blood Count 3.05 10^6 /uL (4.18-5.48); Red Cell Distribution Width 17 % (10-15); White Blood Count 17.3 10^3/uL (3.5-10.8)
[2022-06-24 09:28] LABS: CO2 Carbon Dioxide 27 mmol/L (22-32); Calcium 8.6 mg/dL (8.6-10.3); Chloride 103 mmol/L (101-111); Magnesium 1.7 mg/dL (1.9-2.7); Sodium 138 mmol/L (135-145)
[2022-06-24 09:32] LABS: Anion Gap 8 mmol/L (2-11)
[2022-06-24 09:34] LABS: Blood Urea Nitrogen 28 mg/dL (6-24); Glucose 132 mg/dL (70-100); eGFR CKD-EPI 96.3 (>60)
[2022-06-24] MEDS ORDERED: Magnesium Sulfate 2 gm BAG 2 GM/50 ML BAG IVPB ONE (09:54)
[2022-06-24] MEDS: Insulin GLARGINE 100 un/ml 10 ml VIAL SUBCUT SCH (10:21)
[2022-06-24] MEDS: Nystatin TOP POWDER 15 GM BTL TOPICAL SCH ×2 (10:28→21:28)
[2022-06-24] MEDS: Amoxicillin/Clavul 875/125 TAB (Augmentin 875 tab) PO SCH ×2 (10:28→21:27)
[2022-06-24] MEDS ORDERED: Furosemide 20 mg/2 ml IV VIAL IV ONE ×2 (11:05→15:30)
[2022-06-25] MEDS: Insulin GLARGINE 100 un/ml 10 ml VIAL SUBCUT SCH (08:15)
[2022-06-25] MEDS: SPIRIVA Respimat (tiotropium) 2.5 mcg/inh Inhaler INH SCH (08:16)
[2022-06-25] MEDS: Mometasone/Formoter 200/5 MDI INH SCH ×2 (08:16→18:41)
[2022-06-25] MEDS: Nystatin TOP POWDER 15 GM BTL TOPICAL SCH ×2 (08:22→22:19)
[2022-06-25] MEDS: Amoxicillin/Clavul 875/125 TAB (Augmentin 875 tab) PO SCH ×2 (08:24→22:15)
[2022-06-25] MEDS: Potassium Chlor 20 meq TAB.ER PO SCH (11:33)
[2022-06-26] MEDS: Mometasone/Formoter 200/5 MDI INH SCH ×2 (07:59→18:46)
[2022-06-26] MEDS: SPIRIVA Respimat (tiotropium) 2.5 mcg/inh Inhaler INH SCH (08:00)
[2022-06-26] MEDS: Potassium Chlor 20 meq TAB.ER PO SCH (08:56)
[2022-06-26] MEDS: Insulin GLARGINE 100 un/ml 10 ml VIAL SUBCUT SCH (08:56)
[2022-06-26] MEDS: Amoxicillin/Clavul 875/125 TAB (Augmentin 875 tab) PO SCH ×2 (08:56→21:06)
[2022-06-26] MEDS: Nystatin TOP POWDER 15 GM BTL TOPICAL SCH ×2 (09:00→21:07)
[2022-06-27 06:55] LABS: ABS Eosinophils 0.1 10^3/ul (0-0.6); ABS Lymphocytes 2.4 10^3/ul (1.0-4.8); ABS Monocytes 0.6 10^3/ul (0-0.8); Eosinophil % 0.5 %; Hematocrit 30 % (42-52); Hemoglobin 9.8 g/dL (14.0-18.0); Lymphocyte % 13.1 %; Mean Corpuscular HGB Conc 33 g/dL (31-36); Mean Corpuscular Hemoglobin 29 pg (27-31); Mean Corpuscular Volume 89 fL (80-94); Mean Platelet Volume 7.3 fL (7.4-10.4); Nucleated Red Blood Cells % 0.1; Platelet Count 265 10^3/uL (150-450); Red Blood Count 3.35 10^6 /uL (4.18-5.48); Red Cell Distribution Width 17 % (10-15); White Blood Count 18.1 10^3/uL (3.5-10.8)
[2022-06-27 07:11] LABS: Blood Urea Nitrogen 19 mg/dL (6-24); CO2 Carbon Dioxide 30 mmol/L (22-32); Chloride 97 mmol/L (101-111); Glucose 80 mg/dL (70-100); Magnesium 1.6 mg/dL (1.9-2.7); Sodium 136 mmol/L (135-145); eGFR CKD-EPI 85.1 (>60)
[2022-06-27 07:13] LABS: Anion Gap 9 mmol/L (2-11)
[2022-06-27] MEDS: Mometasone/Formoter 200/5 MDI INH SCH ×2 (07:35→19:20)
[2022-06-27] MEDS: SPIRIVA Respimat (tiotropium) 2.5 mcg/inh Inhaler INH SCH (07:35)
[2022-06-27] MEDS ORDERED: Magnesium Sulfate 2 gm BAG 2 GM/50 ML BAG IVPB ONE (08:10)
[2022-06-27] MEDS: Potassium Chlor 20 meq TAB.ER PO SCH (08:59)
[2022-06-27] MEDS: Nystatin TOP POWDER 15 GM BTL TOPICAL SCH ×2 (09:05→21:38)
[2022-06-27] MEDS: Insulin GLARGINE 100 un/ml 10 ml VIAL SUBCUT SCH (09:53)
[2022-06-27 10:46] LABS: C Reactive Protein 55.09 mg/L (<8.01)
[2022-06-28 06:53] LABS: ABS Basophils 0.1 10^3/ul (0-0.2); ABS Monocytes 0.3 10^3/ul (0-0.8); ABS Neutrophils 16.2 10^3/ul (1.5-7.7); Eosinophil % 0.2 %; Hematocrit 27 % (42-52); Hemoglobin 8.8 g/dL (14.0-18.0); Lymphocyte % 5.8 %; Mean Corpuscular HGB Conc 33 g/dL (31-36); Mean Corpuscular Hemoglobin 29 pg (27-31); Mean Corpuscular Volume 88 fL (80-94); Mean Platelet Volume 7.1 fL (7.4-10.4); Platelet Count 229 10^3/uL (150-450); Red Blood Count 3.04 10^6 /uL (4.18-5.48); Red Cell Distribution Width 17 % (10-15); White Blood Count 17.6 10^3/uL (3.5-10.8)
[2022-06-28] MEDS: Mometasone/Formoter 200/5 MDI INH SCH ×2 (07:19→21:03)
[2022-06-28] MEDS: SPIRIVA Respimat (tiotropium) 2.5 mcg/inh Inhaler INH SCH (07:19)
[2022-06-28] MEDS: Potassium Chlor 20 meq TAB.ER PO SCH (07:32)
[2022-06-28] MEDS: Nystatin TOP POWDER 15 GM BTL TOPICAL SCH ×2 (07:33→21:12)
[2022-06-28 08:35] LABS: Calcium 8.2 mg/dL (8.6-10.3); Potassium 3.7 mmol/L (3.5-5.0); eGFR CKD-EPI 95.9 (>60)
[2022-06-28] MEDS: Insulin GLARGINE 100 un/ml 10 ml VIAL SUBCUT SCH (08:41)
[2022-06-28] MEDS: Nystatin SUSPENSION 100,000 UNITS/ML UDC PO SCH ×3 (16:12→21:07)
[2022-06-28] MEDS: Benzocaine/Menthol LOZ MT PRN (21:08)
[2022-06-29] MEDS: Mometasone/Formoter 200/5 MDI INH SCH ×2 (07:38→20:28)
[2022-06-29] MEDS: SPIRIVA Respimat (tiotropium) 2.5 mcg/inh Inhaler INH SCH (07:38)
[2022-06-29] MEDS: Potassium Chlor 20 meq TAB.ER PO SCH (08:20)
[2022-06-29] MEDS: Nystatin SUSPENSION 100,000 UNITS/ML UDC PO SCH ×4 (08:20→22:05)
[2022-06-29] MEDS: Insulin GLARGINE 100 un/ml 10 ml VIAL SUBCUT SCH (08:33)
[2022-06-29] MEDS ORDERED: Albuterol/Ipratropium NEB.SOL (2.5/0.5 MG) 3 ML NEB.SOLN INH PRN (09:10)
[2022-06-29 11:22] LABS: Rapid COVID-19 Molecular Undetected (Undetected)
[2022-06-29] MEDS: Nystatin TOP POWDER 15 GM BTL TOPICAL SCH ×2 (11:26→22:04)
[2022-06-29] MEDS: Albuterol 2.5mg/3 ml (0.083%) NEB.SOLN INH SCH (20:27)
[2022-06-30] MEDS ORDERED: Acetaminophen IV 1 GM/100ML 1,000 MG/100 ML BAG IV ONE (03:30)
[2022-06-30] MEDS ORDERED: Ondansetron 4 mg VIAL 2 MG/ML 2 ml VIAL IV ONE (03:30)
[2022-06-30 03:53] LABS: ABS Basophils 0.1 10^3/ul (0-0.2); ABS Eosinophils 0.1 10^3/ul (0-0.6); ABS Lymphocytes 2.8 10^3/ul (1.0-4.8); ABS Monocytes 0.5 10^3/ul (0-0.8); ABS Neutrophils 18.2 10^3/ul (1.5-7.7); Eosinophil % 0.4 %; Hematocrit 29 % (42-52); Hemoglobin 9.4 g/dL (14.0-18.0); Lymphocyte % 12.9 %; Mean Corpuscular HGB Conc 33 g/dL (31-36); Mean Corpuscular Hemoglobin 29 pg (27-31); Mean Corpuscular Volume 88 fL (80-94); Platelet Count 332 10^3/uL (150-450); Red Blood Count 3.27 10^6 /uL (4.18-5.48); Red Cell Distribution Width 17 % (10-15); White Blood Count 21.6 10^3/uL (3.5-10.8)
[2022-06-30] MEDS: Albuterol 2.5mg/3 ml (0.083%) NEB.SOLN INH SCH ×2 (07:09→20:37)
[2022-06-30] MEDS: Mometasone/Formoter 200/5 MDI INH SCH ×2 (07:10→20:37)
[2022-06-30] MEDS: Insulin GLARGINE 100 un/ml 10 ml VIAL SUBCUT SCH (09:00)
[2022-06-30] MEDS: Nystatin SUSPENSION 100,000 UNITS/ML UDC PO SCH ×4 (09:01→21:58)
[2022-06-30] MEDS: Potassium Chlor 20 meq TAB.ER PO SCH (09:01)
[2022-06-30] MEDS: Nystatin TOP POWDER 15 GM BTL TOPICAL SCH ×2 (09:34→21:57)
[2022-07-01] MEDS: Albuterol 2.5mg/3 ml (0.083%) NEB.SOLN INH SCH (07:10)
[2022-07-01] MEDS: Mometasone/Formoter 200/5 MDI INH SCH (07:10)
[2022-07-01] MEDS ORDERED: Insulin GLARGINE 100 un/ml 10 ml VIAL SUBCUT SCH (09:00)
[2022-07-01] MEDS: Nystatin SUSPENSION 100,000 UNITS/ML UDC PO SCH ×3 (09:11→17:11)
[2022-07-01] MEDS: Nystatin TOP POWDER 15 GM BTL TOPICAL SCH (09:12)
[2022-07-01] MEDS: Potassium Chlor 20 meq TAB.ER PO SCH (09:12)
[2022-07-01 18:29] VITALS: BP 110/58
== END 2022-07-01 18:20 | disposition home or self-care (01) | DRG 871 ==
LOC: ED 10:07 → SUATTDRO 14:39 → EDHOLD 14:39 → ICU 15:41 → MEDTELE 06-14 14:26 → ICU 06-22 09:55 → MEDTELE 06-24 05:30
PROVIDERS: ADMIT Internal Medicine Critical Care Medicine; ATTEND Internal Medicine

== ENCOUNTER 2022-07-18 16:07 | Inpatient (IN) ==
[2022-07-18 17:05] LABS: Hematocrit 27 % (42-52); Hemoglobin 8.6 g/dL (14.0-18.0); Mean Corpuscular HGB Conc 32 g/dL (31-36); Mean Corpuscular Hemoglobin 28 pg (27-31); Mean Corpuscular Volume 89 fL (80-94); Mean Platelet Volume 6.7 fL (7.4-10.4); Platelet Count 593 10^3/uL (150-450); Red Blood Count 3.05 10^6 /uL (4.18-5.48); Red Cell Distribution Width 16 % (10-15); White Blood Count 29.4 10^3/uL (3.5-10.8)
[2022-07-18 17:08] LABS: Urine Appearance Clear; Urine Bilirubin Negative (Negative); Urine Blood Negative (Negative); Urine Color Straw; Urine Glucose Negative (Negative); Urine Ketones Negative (Negative); Urine Nitrite Negative (Negative); Urine Protein Negative (Negative); Urine Specific Gravity 1.005 (1.002-1.030); Urine Urobilinogen Negative (Negative)
[2022-07-18 17:28] LABS: Albumin 2.9 g/dL (3.2-5.2); Albumin/Globulin Ratio 1.1 (1-3); Calcium 11.5 mg/dL (8.6-10.3); Creatinine, Serum 1.15 mg/dL (0.67-1.17); Globulin 2.7 g/dL (2-4); Magnesium 1.5 mg/dL (1.9-2.7); Potassium 3.9 mmol/L (3.5-5.0); Total Bilirubin 0.3 mg/dL (0.2-1.0); Total Protein 5.6 g/dL (6.4-8.9); eGFR CKD-EPI 66.8 (>60)
[2022-07-18 17:29] LABS: ABS Basophils 0.1 10^3/ul (0-0.2); ABS Monocytes 1.3 10^3/ul (0-0.8); Eosinophil % 0.1 %; Lymphocyte % 10.1 %
[2022-07-18] MEDS ORDERED: Piperacillin/Tazobac ADVAN 3.375 GM in NS 0.9% 100 ml BAG 100 ML IV ONE (17:42)
[2022-07-18] MEDS ORDERED: Magnesium Sulfate 2 gm BAG 2 GM/50 ML BAG IVPB ONE (17:45)
[2022-07-18 20:38] LABS: C Reactive Protein 202.21 mg/L (<8.01)
[2022-07-18] MEDS: Acetaminophen IV 1 GM/100ML 1,000 MG/100 ML BAG IV PRN (21:33)
[2022-07-18] MEDS ORDERED: dilTIAZem ER 120 mg CAP (NF) PO SCH (22:00)
[2022-07-19] MEDS: Albuterol HFA INHALER 8 gm MDI INH SCH ×4 (00:20→19:45)
[2022-07-19 07:40] LABS: Hematocrit 25 % (42-52); Hemoglobin 7.9 g/dL (14.0-18.0); Mean Corpuscular HGB Conc 32 g/dL (31-36); Mean Corpuscular Hemoglobin 29 pg (27-31); Mean Corpuscular Volume 89 fL (80-94); Mean Platelet Volume 6.7 fL (7.4-10.4); Platelet Count 537 10^3/uL (150-450); Red Blood Count 2.76 10^6 /uL (4.18-5.48); Red Cell Distribution Width 17 % (10-15); White Blood Count 28.9 10^3/uL (3.5-10.8)
[2022-07-19 07:49] LABS: ABS Basophils 0.1 10^3/ul (0-0.2); ABS Eosinophils 0.1 10^3/ul (0-0.6); ABS Lymphocytes 3.1 10^3/ul (1.0-4.8); ABS Monocytes 1.4 10^3/ul (0-0.8); ABS Neutrophils 24.2 10^3/ul (1.5-7.7); Eosinophil % 0.3 %; Lymphocyte % 10.8 %
[2022-07-19 08:25] LABS: Calcium 11.5 mg/dL (8.6-10.3); Creatinine, Serum 1.06 mg/dL (0.67-1.17); Magnesium 2.1 mg/dL (1.9-2.7); Potassium 3.6 mmol/L (3.5-5.0); eGFR CKD-EPI 73.6 (>60)
[2022-07-19] MEDS ORDERED: cefTRIAXone 1 gm/50 mL D5W 1 GM/50 ML BAG IV SCH (09:00)
[2022-07-19] MEDS ORDERED: Cefepime ADVAN 1 GM in NS 0.9% 50 ML 50 ML IVPB SCH (10:00)
[2022-07-19] MEDS ORDERED: Cefepime 1 GM in Dextrose 1 GM/50 ML BAG IV SCH (10:31)
[2022-07-19] MEDS: Cefepime 1 GM in Dextrose 1 GM/50 ML BAG IV SCH ×2 (10:37→21:55)
[2022-07-19] MEDS: Mometasone/Formoter 200/5 MDI INH SCH ×2 (12:09→19:46)
[2022-07-19] MEDS: Acetaminophen IV 1 GM/100ML 1,000 MG/100 ML BAG IV PRN (15:55)
[2022-07-19] MEDS ORDERED: Potassium Chlor 20 meq TAB.ER PO ONE (15:58)
[2022-07-19] MEDS ORDERED: Vancomycin 1,000 MG in NS 0.9% 250 ml 250 ML IVPB ONE (17:00)
[2022-07-19] MEDS ORDERED: Potassium Chloride LIQUID 20 MEQ/15 ML LIQUID PO ONE (17:15)
[2022-07-19] MEDS ORDERED: Vancomycin per Pharmacy 1 EA NOTE FOLLOW UP PRN (17:17)
[2022-07-19] MEDS: NS 0.9% 1000 ml BAG 1,000 ML IV SCH (18:01)
[2022-07-19] MEDS: IPRATROPIUM INH SCH (19:46)
[2022-07-20] MEDS: NS 0.9% 1000 ml BAG 1,000 ML IV SCH (02:17)
[2022-07-20] MEDS: Vancomycin 750 MG in NS 0.9% 250 ML IVPB SCH ×2 (05:16→18:01)
[2022-07-20 06:55] LABS: Hematocrit 24 % (42-52); Hemoglobin 7.7 g/dL (14.0-18.0); Mean Corpuscular HGB Conc 32 g/dL (31-36); Mean Corpuscular Hemoglobin 28 pg (27-31); Mean Corpuscular Volume 89 fL (80-94); Mean Platelet Volume 7.1 fL (7.4-10.4); Platelet Count 551 10^3/uL (150-450); Red Blood Count 2.72 10^6 /uL (4.18-5.48); Red Cell Distribution Width 16 % (10-15); White Blood Count 29.9 10^3/uL (3.5-10.8)
[2022-07-20] MEDS: Albuterol HFA INHALER 8 gm MDI INH SCH ×4 (07:11→18:51)
[2022-07-20] MEDS: Mometasone/Formoter 200/5 MDI INH SCH ×2 (07:13→18:51)
[2022-07-20] MEDS: IPRATROPIUM INH SCH ×4 (07:14→18:51)
[2022-07-20 07:15] LABS: Calcium 10.6 mg/dL (8.6-10.3); Creatinine, Serum 0.99 mg/dL (0.67-1.17); Magnesium 1.8 mg/dL (1.9-2.7); Potassium 3.7 mmol/L (3.5-5.0); eGFR CKD-EPI 79.9 (>60)
[2022-07-20 07:19] LABS: ABS Eosinophils 0.1 10^3/ul (0-0.6); ABS Lymphocytes 2.5 10^3/ul (1.0-4.8); ABS Monocytes 1.3 10^3/ul (0-0.8); ABS Neutrophils 25.9 10^3/ul (1.5-7.7); Eosinophil % 0.5 %; Lymphocyte % 8.4 %
[2022-07-20] MEDS ORDERED: Magnesium Sulfate IV 1GM/100ML 1 GM/100 ML BAG IV ONE (08:58)
[2022-07-20] MEDS ORDERED: Potassium EFFERVES 25 meq TAB PO ONE (09:04)
[2022-07-20] MEDS: Cefepime 1 GM in Dextrose 1 GM/50 ML BAG IV SCH ×2 (10:34→21:04)
[2022-07-20] MEDS ORDERED: Lactated Ringers 1000 ml BAG 1,000 ML IV ONE (11:29)
[2022-07-21] MEDS ORDERED: Vancomycin Trough Check NOTE FOLLOW UP ONE (05:30)
[2022-07-21 06:42] LABS: ABS Basophils 0.1 10^3/ul (0-0.2); ABS Eosinophils 0.1 10^3/ul (0-0.6); ABS Lymphocytes 2.9 10^3/ul (1.0-4.8); ABS Neutrophils 16.2 10^3/ul (1.5-7.7); Eosinophil % 0.7 %; Hematocrit 26 % (42-52); Hemoglobin 8.2 g/dL (14.0-18.0); Lymphocyte % 14.2 %; Mean Corpuscular HGB Conc 32 g/dL (31-36); Mean Corpuscular Hemoglobin 28 pg (27-31); Mean Corpuscular Volume 89 fL (80-94); Platelet Count 580 10^3/uL (150-450); Red Blood Count 2.88 10^6 /uL (4.18-5.48); Red Cell Distribution Width 16 % (10-15); White Blood Count 20.3 10^3/uL (3.5-10.8)
[2022-07-21 07:01] LABS: Calcium 10.9 mg/dL (8.6-10.3); Magnesium 1.9 mg/dL (1.9-2.7); Potassium 4.4 mmol/L (3.5-5.0)
[2022-07-21 07:07] LABS: Creatinine, Serum 0.92 mg/dL (0.67-1.17); eGFR CKD-EPI 87.3 (>60)
[2022-07-21] MEDS: IPRATROPIUM INH SCH ×4 (07:52→19:28)
[2022-07-21] MEDS: Albuterol HFA INHALER 8 gm MDI INH SCH ×4 (07:52→19:28)
[2022-07-21] MEDS: Mometasone/Formoter 200/5 MDI INH SCH ×2 (07:52→19:28)
[2022-07-21] MEDS: Vancomycin 750 MG in NS 0.9% 250 ML IVPB SCH ×2 (09:42→17:21)
[2022-07-21] MEDS: Cefepime 1 GM in Dextrose 1 GM/50 ML BAG IV SCH ×2 (12:11→21:49)
[2022-07-21] MEDS: Acetaminophen IV 1 GM/100ML 1,000 MG/100 ML BAG IV PRN (16:31)
[2022-07-22] MEDS: Acetaminophen IV 1 GM/100ML 1,000 MG/100 ML BAG IV PRN ×2 (02:53→15:36)
[2022-07-22 03:48] LABS: Hematocrit 24 % (42-52); Hemoglobin 7.5 g/dL (14.0-18.0); Mean Corpuscular HGB Conc 32 g/dL (31-36); Mean Corpuscular Hemoglobin 28 pg (27-31); Mean Corpuscular Volume 89 fL (80-94); Mean Platelet Volume 6.7 fL (7.4-10.4); Platelet Count 588 10^3/uL (150-450); Red Blood Count 2.68 10^6 /uL (4.18-5.48); Red Cell Distribution Width 16 % (10-15); White Blood Count 25.3 10^3/uL (3.5-10.8)
[2022-07-22 03:50] LABS: ABS Basophils 0.1 10^3/ul (0-0.2); ABS Eosinophils 0.2 10^3/ul (0-0.6); ABS Lymphocytes 1.8 10^3/ul (1.0-4.8); ABS Monocytes 1.3 10^3/ul (0-0.8); Eosinophil % 0.6 %
[2022-07-22 04:25] LABS: Calcium 11.2 mg/dL (8.6-10.3); Magnesium 1.7 mg/dL (1.9-2.7); Potassium 4.2 mmol/L (3.5-5.0)
[2022-07-22 04:31] LABS: Creatinine, Serum 0.86 mg/dL (0.67-1.17); eGFR CKD-EPI 90.9 (>60)
[2022-07-22] MEDS: Vancomycin 750 MG in NS 0.9% 250 ML IVPB SCH ×2 (05:38→18:29)
[2022-07-22] MEDS: IPRATROPIUM INH SCH ×4 (07:56→19:14)
[2022-07-22] MEDS: Albuterol HFA INHALER 8 gm MDI INH SCH ×4 (07:56→19:14)
[2022-07-22] MEDS: Mometasone/Formoter 200/5 MDI INH SCH ×2 (07:57→19:14)
[2022-07-22] MEDS ORDERED: Magnesium Sulfate IV 3 GM in NS 0.9% 100 ml BAG 100 ML IVPB ONE (08:00)
[2022-07-22] MEDS: Cefepime 1 GM in Dextrose 1 GM/50 ML BAG IV SCH ×2 (10:56→23:19)
[2022-07-22 13:30] LABS: C Reactive Protein 179.2 mg/L (<8.01)
[2022-07-23] MEDS ORDERED: Vancomycin Trough Check NOTE FOLLOW UP ONE (05:30)
[2022-07-23 06:03] LABS: ABS Basophils 0.3 10^3/ul (0-0.2); ABS Eosinophils 0.2 10^3/ul (0-0.6); ABS Lymphocytes 2.7 10^3/ul (1.0-4.8); ABS Monocytes 1.2 10^3/ul (0-0.8); ABS Neutrophils 19.7 10^3/ul (1.5-7.7); Eosinophil % 0.7 %; Hematocrit 22 % (42-52); Hemoglobin 7.2 g/dL (14.0-18.0); Lymphocyte % 11.1 %; Mean Corpuscular HGB Conc 33 g/dL (31-36); Mean Corpuscular Hemoglobin 29 pg (27-31); Mean Corpuscular Volume 89 fL (80-94); Mean Platelet Volume 6.8 fL (7.4-10.4); Platelet Count 604 10^3/uL (150-450); Red Blood Count 2.49 10^6 /uL (4.18-5.48); Red Cell Distribution Width 16 % (10-15); White Blood Count 24.1 10^3/uL (3.5-10.8)
[2022-07-23 06:27] LABS: Calcium 10.5 mg/dL (8.6-10.3); Creatinine, Serum 0.77 mg/dL (0.67-1.17); Magnesium 1.9 mg/dL (1.9-2.7); eGFR CKD-EPI 93.9 (>60)
[2022-07-23 06:37] LABS: Creatinine, Serum 0.77 mg/dL (0.67-1.17); Vancomycin Trough 15.7 mcg/mL; eGFR CKD-EPI 93.9 (>60)
[2022-07-23] MEDS: IPRATROPIUM INH SCH ×4 (08:14→20:19)
[2022-07-23] MEDS: Mometasone/Formoter 200/5 MDI INH SCH ×2 (08:14→20:20)
[2022-07-23] MEDS: Albuterol HFA INHALER 8 gm MDI INH SCH ×4 (08:14→20:19)
[2022-07-23] MEDS: Vancomycin 750 MG in NS 0.9% 250 ML IVPB SCH (09:05)
[2022-07-23] MEDS: Amoxicillin/Clavul 875/125 TAB (Augmentin 875 tab) PO SCH ×2 (11:16→20:19)
[2022-07-24 07:36] LABS: Albumin 2.4 g/dL (3.2-5.2); Albumin/Globulin Ratio 1.1 (1-3); Calcium 10.6 mg/dL (8.6-10.3); Creatinine, Serum 0.82 mg/dL (0.67-1.17); Globulin 2.1 g/dL (2-4); Magnesium 1.7 mg/dL (1.9-2.7); Potassium 4.1 mmol/L (3.5-5.0); Total Bilirubin 0.5 mg/dL (0.2-1.0); Total Protein 4.5 g/dL (6.4-8.9); eGFR CKD-EPI 92.2 (>60)
[2022-07-24 08:04] LABS: Hematocrit 23 % (42-52); Hemoglobin 7.2 g/dL (14.0-18.0); Mean Corpuscular HGB Conc 31 g/dL (31-36); Mean Corpuscular Hemoglobin 28 pg (27-31); Mean Corpuscular Volume 90 fL (80-94); Mean Platelet Volume 7.3 fL (7.4-10.4); Platelet Count 617 10^3/uL (150-450); Red Blood Count 2.57 10^6 /uL (4.18-5.48); Red Cell Distribution Width 16 % (10-15); White Blood Count 25.2 10^3/uL (3.5-10.8)
[2022-07-24] MEDS: Mometasone/Formoter 200/5 MDI INH SCH ×2 (08:05→20:45)
[2022-07-24] MEDS: IPRATROPIUM INH SCH ×4 (08:06→20:45)
[2022-07-24] MEDS: Albuterol HFA INHALER 8 gm MDI INH SCH ×4 (08:06→20:46)
[2022-07-24 08:18] LABS: ABS Basophils 0.1 10^3/ul (0-0.2); ABS Eosinophils 0.1 10^3/ul (0-0.6); ABS Lymphocytes 1.9 10^3/ul (1.0-4.8); ABS Monocytes 0.9 10^3/ul (0-0.8); ABS Neutrophils 22.1 10^3/ul (1.5-7.7); Eosinophil % 0.4 %; Lymphocyte % 7.6 %
[2022-07-24] MEDS: Amoxicillin/Clavul 875/125 TAB (Augmentin 875 tab) PO SCH ×2 (10:33→20:49)
[2022-07-25] MEDS: Albuterol HFA INHALER 8 gm MDI INH SCH ×4 (07:17→20:16)
[2022-07-25] MEDS: Mometasone/Formoter 200/5 MDI INH SCH ×2 (07:18→20:15)
[2022-07-25] MEDS: IPRATROPIUM INH SCH ×4 (07:18→20:16)
[2022-07-25 07:24] LABS: ABS Basophils 0.1 10^3/ul (0-0.2); ABS Eosinophils 0.3 10^3/ul (0-0.6); ABS Lymphocytes 1.9 10^3/ul (1.0-4.8); ABS Monocytes 0.9 10^3/ul (0-0.8); ABS Neutrophils 13.7 10^3/ul (1.5-7.7); Eosinophil % 1.5 %; Hematocrit 22 % (42-52); Hemoglobin 7.3 g/dL (14.0-18.0); Lymphocyte % 11.4 %; Mean Corpuscular HGB Conc 33 g/dL (31-36); Mean Corpuscular Hemoglobin 29 pg (27-31); Mean Corpuscular Volume 89 fL (80-94); Mean Platelet Volume 6.6 fL (7.4-10.4); Platelet Count 584 10^3/uL (150-450); Red Cell Distribution Width 16 % (10-15); White Blood Count 16.9 10^3/uL (3.5-10.8)
[2022-07-25 08:09] LABS: Calcium 11.5 mg/dL (8.6-10.3); Creatinine, Serum 0.88 mg/dL (0.67-1.17); Magnesium 1.8 mg/dL (1.9-2.7); Potassium 4.2 mmol/L (3.5-5.0); eGFR CKD-EPI 90.2 (>60)
[2022-07-25] MEDS ORDERED: Magnesium Sulfate 2 gm BAG 2 GM/50 ML BAG IVPB ONE (08:49)
[2022-07-25] MEDS: Amoxicillin/Clavul 875/125 TAB (Augmentin 875 tab) PO SCH ×2 (09:46→21:11)
[2022-07-26] MEDS: IPRATROPIUM INH SCH ×4 (07:17→19:40)
[2022-07-26] MEDS ORDERED: Magnesium Sulfate 2 gm BAG 2 GM/50 ML BAG IVPB ONE (07:18)
[2022-07-26] MEDS: Mometasone/Formoter 200/5 MDI INH SCH ×2 (07:18→19:40)
[2022-07-26] MEDS: Albuterol HFA INHALER 8 gm MDI INH SCH ×4 (07:18→19:40)
[2022-07-26 07:50] LABS: ABS Basophils 0.1 10^3/ul (0-0.2); ABS Eosinophils 0.2 10^3/ul (0-0.6); ABS Lymphocytes 1.8 10^3/ul (1.0-4.8); ABS Monocytes 1.1 10^3/ul (0-0.8); ABS Neutrophils 14.7 10^3/ul (1.5-7.7); Hematocrit 22 % (42-52); Hemoglobin 7.5 g/dL (14.0-18.0); Lymphocyte % 10.2 %; Mean Corpuscular HGB Conc 33 g/dL (31-36); Mean Corpuscular Hemoglobin 29 pg (27-31); Mean Corpuscular Volume 88 fL (80-94); Mean Platelet Volume 6.9 fL (7.4-10.4); Platelet Count 649 10^3/uL (150-450); Red Blood Count 2.54 10^6 /uL (4.18-5.48); Red Cell Distribution Width 16 % (10-15); White Blood Count 17.8 10^3/uL (3.5-10.8)
[2022-07-26 08:16] LABS: Calcium 11.4 mg/dL (8.6-10.3); Magnesium 1.8 mg/dL (1.9-2.7); Potassium 4.2 mmol/L (3.5-5.0)
[2022-07-26] MEDS: Amoxicillin/Clavul 875/125 TAB (Augmentin 875 tab) PO SCH ×2 (08:57→20:19)
[2022-07-26] MEDS: Acetaminophen IV 1 GM/100ML 1,000 MG/100 ML BAG IV PRN (17:04)
[2022-07-27 06:34] LABS: ABS Basophils 0.1 10^3/ul (0-0.2); ABS Eosinophils 0.2 10^3/ul (0-0.6); ABS Lymphocytes 1.9 10^3/ul (1.0-4.8); ABS Monocytes 1.1 10^3/ul (0-0.8); ABS Neutrophils 14.3 10^3/ul (1.5-7.7); Eosinophil % 1.1 %; Hematocrit 22 % (42-52); Hemoglobin 7.2 g/dL (14.0-18.0); Lymphocyte % 10.8 %; Mean Corpuscular HGB Conc 32 g/dL (31-36); Mean Corpuscular Hemoglobin 29 pg (27-31); Mean Corpuscular Volume 88 fL (80-94); Mean Platelet Volume 6.8 fL (7.4-10.4); Platelet Count 594 10^3/uL (150-450); Red Blood Count 2.54 10^6 /uL (4.18-5.48); Red Cell Distribution Width 16 % (10-15); White Blood Count 17.5 10^3/uL (3.5-10.8)
[2022-07-27 07:04] LABS: Calcium 11.1 mg/dL (8.6-10.3); Creatinine, Serum 0.92 mg/dL (0.67-1.17); Magnesium 1.9 mg/dL (1.9-2.7); Potassium 3.9 mmol/L (3.5-5.0); eGFR CKD-EPI 87.3 (>60)
[2022-07-27] MEDS: IPRATROPIUM INH SCH ×4 (07:50→20:17)
[2022-07-27] MEDS: Mometasone/Formoter 200/5 MDI INH SCH ×2 (07:50→20:17)
[2022-07-27] MEDS: Albuterol HFA INHALER 8 gm MDI INH SCH ×4 (07:50→20:17)
[2022-07-27] MEDS: Amoxicillin/Clavul 875/125 TAB (Augmentin 875 tab) PO SCH (08:01)
[2022-07-27] MEDS: Acetaminophen IV 1 GM/100ML 1,000 MG/100 ML BAG IV PRN (09:36)
[2022-07-27] MEDS: Amoxicillin/Clavul 500/125 TAB (Augmentin 500 mg tab) PO SCH ×2 (21:53→22:14)
[2022-07-28] MEDS: Acetaminophen IV 1 GM/100ML 1,000 MG/100 ML BAG IV PRN ×2 (02:13→14:52)
[2022-07-28] MEDS ORDERED: Benzocaine/Menthol LOZ PO PRN (04:34)
[2022-07-28 07:34] LABS: Hematocrit 21 % (42-52); Hemoglobin 6.5 g/dL (14.0-18.0); Mean Corpuscular HGB Conc 31 g/dL (31-36); Mean Corpuscular Hemoglobin 27 pg (27-31); Mean Corpuscular Volume 88 fL (80-94); Mean Platelet Volume 6.8 fL (7.4-10.4); Platelet Count 569 10^3/uL (150-450); Red Blood Count 2.38 10^6 /uL (4.18-5.48); Red Cell Distribution Width 16 % (10-15); White Blood Count 24.8 10^3/uL (3.5-10.8)
[2022-07-28] MEDS: Albuterol HFA INHALER 8 gm MDI INH SCH ×4 (08:21→19:28)
[2022-07-28] MEDS: Mometasone/Formoter 200/5 MDI INH SCH ×2 (08:22→19:28)
[2022-07-28] MEDS: IPRATROPIUM INH SCH ×4 (08:22→19:29)
[2022-07-28 08:23] LABS: Calcium 10.8 mg/dL (8.6-10.3); Magnesium 1.7 mg/dL (1.9-2.7); Potassium 3.7 mmol/L (3.5-5.0)
[2022-07-28 08:32] LABS: ABS Basophils 0.1 10^3/ul (0-0.2); ABS Eosinophils 0.1 10^3/ul (0-0.6); ABS Monocytes 1.4 10^3/ul (0-0.8); ABS Neutrophils 20.2 10^3/ul (1.5-7.7); Eosinophil % 0.4 %; Lymphocyte % 12.1 %
[2022-07-28] MEDS ORDERED: Magnesium Sulfate 2 gm BAG 2 GM/50 ML BAG IVPB ONE (08:41)
[2022-07-28] MEDS: Amoxicillin/Clavul 500/125 TAB (Augmentin 500 mg tab) PO SCH ×2 (09:08→22:43)
[2022-07-28 15:30] LABS: Hematocrit 25 % (42-52); Hemoglobin 8.3 g/dL (14.0-18.0)
[2022-07-29] MEDS: Acetaminophen IV 1 GM/100ML 1,000 MG/100 ML BAG IV PRN (03:42)
[2022-07-29 05:58] LABS: Hematocrit 23 % (42-52); Hemoglobin 7.8 g/dL (14.0-18.0); Mean Corpuscular HGB Conc 34 g/dL (31-36); Mean Corpuscular Hemoglobin 29 pg (27-31); Mean Corpuscular Volume 86 fL (80-94); Mean Platelet Volume 6.5 fL (7.4-10.4); Platelet Count 558 10^3/uL (150-450); Red Blood Count 2.73 10^6 /uL (4.18-5.48); Red Cell Distribution Width 16 % (10-15); White Blood Count 24.8 10^3/uL (3.5-10.8)
[2022-07-29 06:03] LABS: ABS Basophils 0.2 10^3/ul (0-0.2); ABS Eosinophils 0.2 10^3/ul (0-0.6); ABS Lymphocytes 2.3 10^3/ul (1.0-4.8); ABS Monocytes 1.3 10^3/ul (0-0.8); ABS Neutrophils 20.9 10^3/ul (1.5-7.7); Eosinophil % 0.7 %; Lymphocyte % 9.2 %
[2022-07-29 06:48] LABS: Calcium 10.7 mg/dL (8.6-10.3); Creatinine, Serum 0.96 mg/dL (0.67-1.17); Magnesium 1.7 mg/dL (1.9-2.7); Potassium 3.9 mmol/L (3.5-5.0); eGFR CKD-EPI 82.9 (>60)
[2022-07-29] MEDS: IPRATROPIUM INH SCH (08:17)
[2022-07-29] MEDS: Mometasone/Formoter 200/5 MDI INH SCH ×2 (08:17→19:09)
[2022-07-29] MEDS: Albuterol HFA INHALER 8 gm MDI INH SCH ×4 (08:17→19:09)
[2022-07-29] MEDS: Amoxicillin/Clavul 500/125 TAB (Augmentin 500 mg tab) PO SCH ×2 (10:45→20:33)
[2022-07-29] MEDS: Ipratropium HFA INHALER(NF) (ALTERNATIVE = NEBS) INH SCH ×3 (11:24→19:09)
[2022-07-30 07:04] LABS: ABS Basophils 0.1 10^3/ul (0-0.2); ABS Eosinophils 0.2 10^3/ul (0-0.6); ABS Lymphocytes 2.5 10^3/ul (1.0-4.8); ABS Monocytes 1.2 10^3/ul (0-0.8); ABS Neutrophils 17.6 10^3/ul (1.5-7.7); Eosinophil % 0.7 %; Hematocrit 26 % (42-52); Hemoglobin 8.3 g/dL (14.0-18.0); Lymphocyte % 11.4 %; Mean Corpuscular HGB Conc 33 g/dL (31-36); Mean Corpuscular Hemoglobin 29 pg (27-31); Mean Corpuscular Volume 90 fL (80-94); Mean Platelet Volume 7.1 fL (7.4-10.4); Platelet Count 580 10^3/uL (150-450); Red Blood Count 2.85 10^6 /uL (4.18-5.48); Red Cell Distribution Width 16 % (10-15); White Blood Count 21.6 10^3/uL (3.5-10.8)
[2022-07-30 07:32] LABS: Creatinine, Serum 0.92 mg/dL (0.67-1.17); Magnesium 1.5 mg/dL (1.9-2.7); Potassium 3.9 mmol/L (3.5-5.0); eGFR CKD-EPI 87.3 (>60)
[2022-07-30] MEDS: Albuterol HFA INHALER 8 gm MDI INH SCH ×4 (07:35→19:39)
[2022-07-30] MEDS: Ipratropium HFA INHALER(NF) (ALTERNATIVE = NEBS) INH SCH ×4 (07:35→19:40)
[2022-07-30] MEDS: Mometasone/Formoter 200/5 MDI INH SCH ×2 (07:36→19:39)
[2022-07-30] MEDS ORDERED: Magnesium Sulf 4 GM/100 ML IV 4,000 MG/100 ML BAG IVPB ONE (08:37)
[2022-07-30] MEDS: Acetaminophen IV 1 GM/100ML 1,000 MG/100 ML BAG IV PRN ×2 (09:13→22:43)
[2022-07-30] MEDS: Amoxicillin/Clavul 500/125 TAB (Augmentin 500 mg tab) PO SCH (09:44)
[2022-07-30] MEDS ORDERED: Piperacillin/Tazobac ADVAN 3.375 GM in NS 0.9% 100 ml BAG 100 ML IV ONE (10:04)
[2022-07-30] MEDS ORDERED: Vancomycin 1,000 MG in NS 0.9% 250 ml 250 ML IVPB ONE (10:04)
[2022-07-30 10:28] LABS: PCO2 Arterial 39 mmHg (35-45); PO2 Arterial 109 mmHg (80-100)
[2022-07-30] MEDS ORDERED: Vancomycin 1,250 MG in NS 0.9% 250 ml 250 ML IVPB ONE (11:00)
[2022-07-30] MEDS ORDERED: Vancomycin per Pharmacy 1 EA NOTE FOLLOW UP SCH (11:00)
[2022-07-30] MEDS ORDERED: Zosyn per Pharmacy NOTE FOLLOW UP SCH (11:00)
[2022-07-30] MEDS: ZOSYN 3.375 GM Q8H per EXTENDED INFUSION IV SCH ×2 (15:04→23:05)
[2022-07-31] MEDS: Vancomycin 1000 MG in NS 0.9% 250 ML IVPB SCH ×2 (01:35→13:15)
[2022-07-31 06:05] LABS: ABS Basophils 0.1 10^3/ul (0-0.2); ABS Eosinophils 0.1 10^3/ul (0-0.6); ABS Lymphocytes 2.8 10^3/ul (1.0-4.8); ABS Monocytes 1.2 10^3/ul (0-0.8); ABS Neutrophils 16.6 10^3/ul (1.5-7.7); Eosinophil % 0.7 %; Hematocrit 23 % (42-52); Hemoglobin 7.2 g/dL (14.0-18.0); Lymphocyte % 13.6 %; Mean Corpuscular HGB Conc 31 g/dL (31-36); Mean Corpuscular Hemoglobin 28 pg (27-31); Mean Corpuscular Volume 90 fL (80-94); Mean Platelet Volume 7.4 fL (7.4-10.4); Platelet Count 549 10^3/uL (150-450); Red Blood Count 2.55 10^6 /uL (4.18-5.48); Red Cell Distribution Width 16 % (10-15); White Blood Count 20.9 10^3/uL (3.5-10.8)
[2022-07-31 06:21] LABS: Calcium 10.2 mg/dL (8.6-10.3); Creatinine, Serum 1.12 mg/dL (0.67-1.17); Potassium 4.2 mmol/L (3.5-5.0); eGFR CKD-EPI 68.9 (>60)
[2022-07-31] MEDS: Mometasone/Formoter 200/5 MDI INH SCH ×2 (06:59→20:02)
[2022-07-31] MEDS: Albuterol HFA INHALER 8 gm MDI INH SCH ×4 (06:59→20:01)
[2022-07-31] MEDS: Ipratropium HFA INHALER(NF) (ALTERNATIVE = NEBS) INH SCH ×4 (06:59→20:01)
[2022-07-31] MEDS: ZOSYN 3.375 GM Q8H per EXTENDED INFUSION IV SCH ×3 (08:11→22:59)
[2022-07-31] MEDS ORDERED: Benzocaine (plain) Lozenge 15 MG PO PRN (10:41)
[2022-07-31] MEDS: Acetaminophen IV 1 GM/100ML 1,000 MG/100 ML BAG IV PRN (17:19)
[2022-08-01] MEDS: Vancomycin 1000 MG in NS 0.9% 250 ML IVPB SCH (00:57)
[2022-08-01] MEDS: Acetaminophen IV 1 GM/100ML 1,000 MG/100 ML BAG IV PRN ×2 (01:50→15:47)
[2022-08-01 06:29] LABS: ABS Basophils 0.1 10^3/ul (0-0.2); ABS Eosinophils 0.2 10^3/ul (0-0.6); ABS Lymphocytes 2.2 10^3/ul (1.0-4.8); ABS Monocytes 1.3 10^3/ul (0-0.8); ABS Neutrophils 18.6 10^3/ul (1.5-7.7); Eosinophil % 0.7 %; Hematocrit 22 % (42-52); Hemoglobin 7.1 g/dL (14.0-18.0); Lymphocyte % 9.9 %; Mean Corpuscular HGB Conc 32 g/dL (31-36); Mean Corpuscular Hemoglobin 28 pg (27-31); Mean Corpuscular Volume 89 fL (80-94); Mean Platelet Volume 7.3 fL (7.4-10.4); Platelet Count 564 10^3/uL (150-450); Red Blood Count 2.51 10^6 /uL (4.18-5.48); Red Cell Distribution Width 16 % (10-15); White Blood Count 22.3 10^3/uL (3.5-10.8)
[2022-08-01 06:43] LABS: Calcium 10.4 mg/dL (8.6-10.3); Creatinine, Serum 0.84 mg/dL (0.67-1.17); Magnesium 1.5 mg/dL (1.9-2.7); Potassium 3.9 mmol/L (3.5-5.0); eGFR CKD-EPI 91.5 (>60)
[2022-08-01] MEDS: Albuterol HFA INHALER 8 gm MDI INH SCH ×4 (07:05→19:03)
[2022-08-01] MEDS: Mometasone/Formoter 200/5 MDI INH SCH ×2 (07:06→19:03)
[2022-08-01] MEDS: Ipratropium HFA INHALER(NF) (ALTERNATIVE = NEBS) INH SCH ×4 (07:06→19:03)
[2022-08-01] MEDS ORDERED: Magnesium Sulfate IV 3 GM in NS 0.9% 100 ml BAG 100 ML IVPB ONE (07:18)
[2022-08-01] MEDS: ZOSYN 3.375 GM Q8H per EXTENDED INFUSION IV SCH (08:01)
[2022-08-01] MEDS ORDERED: Vancomycin Trough Check NOTE FOLLOW UP ONE (12:30)
[2022-08-01] MEDS: Nystatin TOP POWDER 15 GM BTL TOPICAL SCH ×2 (14:03→20:39)
[2022-08-02 06:46] LABS: Hematocrit 24 % (42-52); Hemoglobin 7.6 g/dL (14.0-18.0); Mean Corpuscular HGB Conc 32 g/dL (31-36); Mean Corpuscular Hemoglobin 28 pg (27-31); Mean Corpuscular Volume 90 fL (80-94); Mean Platelet Volume 7.6 fL (7.4-10.4); Platelet Count 596 10^3/uL (150-450); Red Cell Distribution Width 16 % (10-15); White Blood Count 24.7 10^3/uL (3.5-10.8)
[2022-08-02 06:47] LABS: ABS Basophils 0.1 10^3/ul (0-0.2); ABS Eosinophils 0.1 10^3/ul (0-0.6); ABS Lymphocytes 1.9 10^3/ul (1.0-4.8); ABS Monocytes 1.5 10^3/ul (0-0.8); Eosinophil % 0.3 %; Lymphocyte % 7.8 %
[2022-08-02 06:49] LABS: Calcium 10.8 mg/dL (8.6-10.3); Creatinine, Serum 0.8 mg/dL (0.67-1.17); Magnesium 1.9 mg/dL (1.9-2.7); Potassium 4.2 mmol/L (3.5-5.0); eGFR CKD-EPI 92.9 (>60)
[2022-08-02] MEDS: Mometasone/Formoter 200/5 MDI INH SCH ×2 (07:19→18:41)
[2022-08-02] MEDS: Ipratropium HFA INHALER(NF) (ALTERNATIVE = NEBS) INH SCH ×4 (07:19→18:41)
[2022-08-02] MEDS: Albuterol HFA INHALER 8 gm MDI INH SCH ×4 (07:19→18:41)
[2022-08-02] MEDS: Acetaminophen IV 1 GM/100ML 1,000 MG/100 ML BAG IV PRN ×2 (07:33→18:09)
[2022-08-02] MEDS: Nystatin TOP POWDER 15 GM BTL TOPICAL SCH ×3 (07:36→20:28)
[2022-08-03] MEDS ORDERED: Morphine 2 MG/ML SYRINGE IV ONE (01:42)
[2022-08-03 05:32] LABS: Hematocrit 23 % (42-52); Hemoglobin 7.4 g/dL (14.0-18.0); Mean Corpuscular HGB Conc 32 g/dL (31-36); Mean Corpuscular Hemoglobin 28 pg (27-31); Mean Corpuscular Volume 89 fL (80-94); Platelet Count 596 10^3/uL (150-450); Red Blood Count 2.61 10^6 /uL (4.18-5.48); Red Cell Distribution Width 16 % (10-15); White Blood Count 24.7 10^3/uL (3.5-10.8)
[2022-08-03 06:06] LABS: C Reactive Protein 265.35 mg/L (<8.01); Calcium 11.1 mg/dL (8.6-10.3); Creatinine, Serum 0.76 mg/dL (0.67-1.17); Magnesium 1.6 mg/dL (1.9-2.7); Potassium 4.1 mmol/L (3.5-5.0); eGFR CKD-EPI 94.3 (>60)
[2022-08-03] MEDS: Ipratropium HFA INHALER(NF) (ALTERNATIVE = NEBS) INH SCH ×4 (07:27→19:18)
[2022-08-03] MEDS: Albuterol HFA INHALER 8 gm MDI INH SCH ×4 (07:27→19:18)
[2022-08-03] MEDS: Mometasone/Formoter 200/5 MDI INH SCH ×2 (07:27→19:19)
[2022-08-03] MEDS ORDERED: Magnesium Sulfate IV 3 GM in NS 0.9% 100 ml BAG 100 ML IVPB ONE (08:17)
[2022-08-03] MEDS: Nystatin TOP POWDER 15 GM BTL TOPICAL SCH ×3 (08:37→22:25)
[2022-08-04 07:20] LABS: Hematocrit 27 % (42-52); Hemoglobin 8.6 g/dL (14.0-18.0); Mean Corpuscular HGB Conc 32 g/dL (31-36); Mean Corpuscular Hemoglobin 28 pg (27-31); Mean Corpuscular Volume 88 fL (80-94); Mean Platelet Volume 6.9 fL (7.4-10.4); Platelet Count 683 10^3/uL (150-450); Red Blood Count 3.07 10^6 /uL (4.18-5.48); Red Cell Distribution Width 16 % (10-15); White Blood Count 25.4 10^3/uL (3.5-10.8)
[2022-08-04] MEDS: Ipratropium HFA INHALER(NF) (ALTERNATIVE = NEBS) INH SCH ×4 (07:26→19:16)
[2022-08-04] MEDS: Mometasone/Formoter 200/5 MDI INH SCH ×2 (07:27→19:17)
[2022-08-04] MEDS: Albuterol HFA INHALER 8 gm MDI INH SCH ×4 (07:27→19:16)
[2022-08-04 08:04] LABS: Calcium 11.3 mg/dL (8.6-10.3); Creatinine, Serum 0.79 mg/dL (0.67-1.17); Magnesium 1.9 mg/dL (1.9-2.7); Potassium 4.2 mmol/L (3.5-5.0); eGFR CKD-EPI 93.2 (>60)
[2022-08-04] MEDS: Nystatin TOP POWDER 15 GM BTL TOPICAL SCH ×3 (11:26→23:29)
[2022-08-04] MEDS ORDERED: Magnesium Sulfate IV 1GM/100ML 1 GM/100 ML BAG IV ONE (15:22)
[2022-08-04 22:52] LABS: Hematocrit 23 % (42-52); Hemoglobin 7.3 g/dL (14.0-18.0); Mean Corpuscular HGB Conc 32 g/dL (31-36); Mean Corpuscular Hemoglobin 28 pg (27-31); Mean Corpuscular Volume 88 fL (80-94); Platelet Count 597 10^3/uL (150-450); Red Cell Distribution Width 16 % (10-15); White Blood Count 23.8 10^3/uL (3.5-10.8)
[2022-08-04 22:54] LABS: ABS Basophils 0.1 10^3/ul (0-0.2); ABS Eosinophils 0.2 10^3/ul (0-0.6); ABS Lymphocytes 1.5 10^3/ul (1.0-4.8); ABS Monocytes 1.2 10^3/ul (0-0.8); ABS Neutrophils 20.7 10^3/ul (1.5-7.7); Eosinophil % 0.9 %; Lymphocyte % 6.5 %
[2022-08-04] MEDS ORDERED: Lactated Ringers 1000 ml BAG 1,000 ML IV SCH (23:00)
[2022-08-04 23:18] LABS: Albumin 2.5 g/dL (3.2-5.2); Albumin/Globulin Ratio 1.1 (1-3); C Reactive Protein 228.39 mg/L (<8.01); Calcium 10.6 mg/dL (8.6-10.3); Creatinine, Serum 0.91 mg/dL (0.67-1.17); Globulin 2.3 g/dL (2-4); Potassium 3.5 mmol/L (3.5-5.0); Total Bilirubin 0.3 mg/dL (0.2-1.0); Total Protein 4.8 g/dL (6.4-8.9); eGFR CKD-EPI 88.4 (>60)
[2022-08-04] MEDS ORDERED: Acetaminophen IV 1 GM/100ML 1,000 MG/100 ML BAG IV PRN (23:20)
[2022-08-05 00:23] LABS: Magnesium 1.8 mg/dL (1.9-2.7)
[2022-08-05 06:18] LABS: Hematocrit 22 % (42-52); Hemoglobin 6.9 g/dL (14.0-18.0); Mean Corpuscular HGB Conc 32 g/dL (31-36); Mean Corpuscular Hemoglobin 28 pg (27-31); Mean Corpuscular Volume 89 fL (80-94); Mean Platelet Volume 7.6 fL (7.4-10.4); Platelet Count 533 10^3/uL (150-450); Red Blood Count 2.44 10^6 /uL (4.18-5.48); Red Cell Distribution Width 16 % (10-15); White Blood Count 28.3 10^3/uL (3.5-10.8)
[2022-08-05 06:32] LABS: Calcium 10.2 mg/dL (8.6-10.3); Creatinine, Serum 0.86 mg/dL (0.67-1.17); Phosphorus 4.3 mg/dL (2.5-5.0); Potassium 3.7 mmol/L (3.5-5.0); eGFR CKD-EPI 90.9 (>60)
[2022-08-05] MEDS: Mometasone/Formoter 200/5 MDI INH SCH ×2 (07:31→19:13)
[2022-08-05] MEDS: Ipratropium HFA INHALER(NF) (ALTERNATIVE = NEBS) INH SCH ×4 (07:31→19:12)
[2022-08-05] MEDS: Albuterol HFA INHALER 8 gm MDI INH SCH ×4 (07:32→19:12)
[2022-08-05] MEDS: Nystatin TOP POWDER 15 GM BTL TOPICAL SCH ×3 (08:45→20:38)
[2022-08-05] MEDS ORDERED: Potassium Chlor 20 meq TAB.ER PO ONE (16:23)
[2022-08-05] MEDS ORDERED: Potassium Chlor 10 meq TAB PO ONE (16:23)
[2022-08-05] MEDS ORDERED: Acetaminophen IV 1 GM/100ML 1,000 MG/100 ML BAG IV ONE (16:53)
[2022-08-05] MEDS: Polyethylene Glycol 3350 17 GM PACKET PO SCH (20:38)
[2022-08-06 03:12] LABS: Hematocrit 23 % (42-52); Hemoglobin 7.3 g/dL (14.0-18.0)
[2022-08-06 06:38] LABS: Hematocrit 22 % (42-52); Hemoglobin 7.3 g/dL (14.0-18.0); Mean Corpuscular HGB Conc 34 g/dL (31-36); Mean Corpuscular Hemoglobin 30 pg (27-31); Mean Corpuscular Volume 88 fL (80-94); Mean Platelet Volume 7.1 fL (7.4-10.4); Platelet Count 456 10^3/uL (150-450); Red Blood Count 2.46 10^6 /uL (4.18-5.48); Red Cell Distribution Width 16 % (10-15); White Blood Count 24.8 10^3/uL (3.5-10.8)
[2022-08-06 06:39] LABS: ABS Basophils 0.2 10^3/ul (0-0.2); ABS Eosinophils 0.5 10^3/ul (0-0.6); ABS Lymphocytes 2.3 10^3/ul (1.0-4.8); ABS Monocytes 1.3 10^3/ul (0-0.8); ABS Neutrophils 20.6 10^3/ul (1.5-7.7); Eosinophil % 1.8 %; Lymphocyte % 9.3 %
[2022-08-06 06:57] LABS: Calcium 9.9 mg/dL (8.6-10.3); Creatinine, Serum 0.85 mg/dL (0.67-1.17); Magnesium 1.8 mg/dL (1.9-2.7); Potassium 3.8 mmol/L (3.5-5.0); eGFR CKD-EPI 91.2 (>60)
[2022-08-06] MEDS: Ipratropium HFA INHALER(NF) (ALTERNATIVE = NEBS) INH SCH ×4 (07:02→19:59)
[2022-08-06] MEDS: Mometasone/Formoter 200/5 MDI INH SCH ×2 (07:02→20:01)
[2022-08-06] MEDS: Albuterol HFA INHALER 8 gm MDI INH SCH ×4 (07:02→19:58)
[2022-08-06] MEDS: Polyethylene Glycol 3350 17 GM PACKET PO SCH ×2 (08:55→21:03)
[2022-08-06] MEDS: Nystatin TOP POWDER 15 GM BTL TOPICAL SCH ×3 (10:25→21:04)
[2022-08-06] MEDS ORDERED: Potassium Chlor 20 meq TAB.ER PO ONE (13:54)
[2022-08-06] MEDS ORDERED: Magnesium Sulfate 2 gm BAG 2 GM/50 ML BAG IVPB ONE (13:55)
[2022-08-07] MEDS: Mometasone/Formoter 200/5 MDI INH SCH ×2 (07:11→19:01)
[2022-08-07] MEDS: Ipratropium HFA INHALER(NF) (ALTERNATIVE = NEBS) INH SCH (07:11)
[2022-08-07] MEDS: Albuterol HFA INHALER 8 gm MDI INH SCH ×3 (07:12→19:00)
[2022-08-07] MEDS: Polyethylene Glycol 3350 17 GM PACKET PO SCH (09:32)
[2022-08-07] MEDS: Nystatin TOP POWDER 15 GM BTL TOPICAL SCH ×3 (09:40→20:59)
[2022-08-07] MEDS: SPIRIVA Respimat (tiotropium) 2.5 mcg/inh Inhaler INH SCH (12:33)
[2022-08-08] MEDS: Albuterol HFA INHALER 8 gm MDI INH SCH ×4 (00:03→18:56)
[2022-08-08] MEDS: SPIRIVA Respimat (tiotropium) 2.5 mcg/inh Inhaler INH SCH (07:27)
[2022-08-08] MEDS: Mometasone/Formoter 200/5 MDI INH SCH ×2 (07:28→18:55)
[2022-08-08] MEDS: Nystatin TOP POWDER 15 GM BTL TOPICAL SCH ×3 (09:48→20:09)
[2022-08-09] MEDS: Albuterol HFA INHALER 8 gm MDI INH SCH ×5 (00:53→23:03)
[2022-08-09] MEDS ORDERED: Senna TAB 8.6 mg TAB PO PRN (06:47)
[2022-08-09] MEDS: SPIRIVA Respimat (tiotropium) 2.5 mcg/inh Inhaler INH SCH (07:42)
[2022-08-09] MEDS: Mometasone/Formoter 200/5 MDI INH SCH ×2 (07:42→20:39)
[2022-08-09] MEDS: Nystatin TOP POWDER 15 GM BTL TOPICAL SCH ×3 (10:16→20:50)
[2022-08-09] MEDS ORDERED: Benzocaine (plain) Lozenge 15 MG PO PRN (15:26)
[2022-08-09] MEDS ORDERED: Albuterol HFA INHALER 8 gm MDI INH PRN (15:33)
[2022-08-10] MEDS: Albuterol HFA INHALER 8 gm MDI INH SCH ×4 (06:12→19:12)
[2022-08-10] MEDS: Mometasone/Formoter 200/5 MDI INH SCH ×2 (07:10→19:12)
[2022-08-10] MEDS: SPIRIVA Respimat (tiotropium) 2.5 mcg/inh Inhaler INH SCH (07:10)
[2022-08-10] MEDS: Nystatin TOP POWDER 15 GM BTL TOPICAL SCH ×3 (09:30→22:18)
[2022-08-10] MEDS: Polyethylene Glycol 3350 17 GM PACKET PO SCH (12:48)
[2022-08-11] MEDS: Albuterol HFA INHALER 8 gm MDI INH SCH ×5 (01:38→19:06)
[2022-08-11 06:29] LABS: Hematocrit 27 % (42-52); Hemoglobin 8.6 g/dL (14.0-18.0); Mean Corpuscular HGB Conc 32 g/dL (31-36); Mean Corpuscular Hemoglobin 29 pg (27-31); Mean Corpuscular Volume 88 fL (80-94); Mean Platelet Volume 6.7 fL (7.4-10.4); Platelet Count 571 10^3/uL (150-450); Red Blood Count 3.02 10^6 /uL (4.18-5.48); Red Cell Distribution Width 17 % (10-15); White Blood Count 27.3 10^3/uL (3.5-10.8)
[2022-08-11 06:34] LABS: ABS Basophils 0.1 10^3/ul (0-0.2); ABS Eosinophils 0.4 10^3/ul (0-0.6); ABS Lymphocytes 1.8 10^3/ul (1.0-4.8); ABS Monocytes 1.8 10^3/ul (0-0.8); ABS Neutrophils 23.2 10^3/ul (1.5-7.7); Eosinophil % 1.6 %; Lymphocyte % 6.5 %; Nucleated Red Blood Cells % 0.1
[2022-08-11 06:47] LABS: Albumin 2.4 g/dL (3.2-5.2); Calcium 10.9 mg/dL (8.6-10.3); Creatinine, Serum 1.1 mg/dL (0.67-1.17); Globulin 2.5 g/dL (2-4); Magnesium 1.6 mg/dL (1.9-2.7); Potassium 3.2 mmol/L (3.5-5.0); Total Bilirubin 0.4 mg/dL (0.2-1.0); Total Protein 4.9 g/dL (6.4-8.9); eGFR CKD-EPI 70.4 (>60)
[2022-08-11] MEDS: Mometasone/Formoter 200/5 MDI INH SCH ×2 (07:29→19:05)
[2022-08-11] MEDS: SPIRIVA Respimat (tiotropium) 2.5 mcg/inh Inhaler INH SCH (07:29)
[2022-08-11] MEDS ORDERED: Potassium Chlor 20 meq TAB.ER PO ONE (07:30)
[2022-08-11] MEDS: Polyethylene Glycol 3350 17 GM PACKET PO SCH (09:06)
[2022-08-11] MEDS: Nystatin TOP POWDER 15 GM BTL TOPICAL SCH ×3 (09:06→21:30)
[2022-08-11] MEDS ORDERED: Magnesium Sulf 4 GM/100 ML IV 4,000 MG/100 ML BAG IVPB ONE (09:30)
[2022-08-12] MEDS: Albuterol HFA INHALER 8 gm MDI INH SCH ×4 (02:39→11:22)
[2022-08-12 06:36] LABS: Calcium 10.7 mg/dL (8.6-10.3); Creatinine, Serum 1.2 mg/dL (0.67-1.17); Magnesium 2.2 mg/dL (1.9-2.7); Potassium 3.5 mmol/L (3.5-5.0); eGFR CKD-EPI 63.5 (>60)
[2022-08-12] MEDS: SPIRIVA Respimat (tiotropium) 2.5 mcg/inh Inhaler INH SCH (07:13)
[2022-08-12] MEDS: Mometasone/Formoter 200/5 MDI INH SCH (07:14)
[2022-08-12] MEDS ORDERED: Potassium Chlor 20 meq TAB.ER PO ONE (07:20)
[2022-08-12] MEDS: Nystatin TOP POWDER 15 GM BTL TOPICAL SCH (07:50)
[2022-08-12] MEDS: Polyethylene Glycol 3350 17 GM PACKET PO SCH (07:50)
[2022-08-12 08:10] LABS: C Reactive Protein 265.58 mg/L (<8.01)
[2022-08-12] MEDS ORDERED: Potassium Chloride LIQUID 20 MEQ/15 ML LIQUID PO ONE (08:34)
[2022-08-12 10:56] VITALS: BP 115/64
== END 2022-08-12 13:30 | DRG 871 ==
LOC: ED 16:07 → EDHOLD 19:02 → SUATTDRO 19:02 → MEDTELE 21:56 → MED 07-30 22:32
PROVIDERS: ADMIT Student in an Organized Health Care Education/Training Program; ATTEND Internal Medicine